=== PATIENT | male | born 1955 | race Caucasian/White ===

== ENCOUNTER 2020-08-31 10:07 | Outpatient (REF) | payer OTHER, SELFPAY ==
[2020-08-31 11:16] LABS: Hematocrit 45.2 % (42-52); Hemoglobin 15.2 g/dl (14.0-18.0); Mean Corpuscular HGB Conc 33.6 g/dl (31.0-36.0); Mean Corpuscular Hemoglobin 31.2 pg (27.0-33.0); Mean Corpuscular Volume 92.8 fL (80-98); Platelet Count 208 X10*3/uL (160-400); Red Blood Count 4.87 X10*6/uL (4.60-5.80); Red Cell Distribution Width 11.8 % (11.0-16.0); White Blood Count 5.3 X10*3/uL (4.8-10.8)
[2020-08-31 11:17] LABS: Glucose Urine UA NEG (NEG); Leukocyte Esterase Urine NEG (NEG); Nitrite Urine NEG (NEG); PH 5.5 (5.0-8.0); Specific Gravity - Urine >= 1.030 (1.005-1.025); Urine Blood TRACE (NEG); Urine Ketones NEG (NEG); Urine Protein NEG (NEG-TRACE)
[2020-08-31 11:27] LABS: Appearance Urine CLEAR; Color Urine YELLOW
[2020-08-31 11:56] LABS: Alanine Aminotransferase 22 U/L (0-40); Albumin Level 4.3 g/dL (3.5-5.0); Alkaline Phosphatase 54 U/L (39-117); Anion Gap 10 (12-20); Aspartate Amino Transferase 21 U/L (5-37); Bilirubin Total 1.7 mg/dL (0.0-1.0); Blood Urea Nitrogen 22 mg/dL (9-16); Calcium 8.7 mg/dL (8.4-10.2); Carbon Dioxide 26 mmol/L (22-29); Chloride 107 mmol/L (96-108); Cholesterol 149 mg/dL; Estimated Glomerular Filt Rate > 60; Glucose Fasting 96 mg/dL (60-99); HDL Cholesterol 43 mg/dL; LDL Cholesterol Calculated 87 mg/dl; Potassium 4.1 mmol/L (3.3-5.1); Sodium 139 mmol/L (135-145); Triglycerides 97 mg/dL
[2020-08-31 12:02] LABS: RBC Urine 0-2 /HPF (0); Squamous Epithelial Cell Urine TRACE /LPF; WBC Urine 0 /HPF (0-4)
== END 2020-08-31 10:08 | disposition home or self-care (01) ==
LOC: HO.HMGCLDS 10:07
PROVIDERS: PCP Internal Medicine; Visit Provider Internal Medicine
DX: Z00.00 Encounter for general adult medical examination without abnormal findings (principal); Z12.5 Encounter for screening for malignant neoplasm of prostate
CPT/HCPCS: 36415; 80053; 80061; 81001; 84153; 85027

== ENCOUNTER 2021-08-31 11:29 | Outpatient (REF) | payer OTHER, SELFPAY ==
[2021-08-31 13:49] LABS: Hematocrit 44.1 % (42.0-52.0); Hemoglobin 15.3 g/dl (14.0-18.0); Mean Corpuscular HGB Conc 34.7 g/dl (31.0-36.0); Mean Corpuscular Hemoglobin 31.6 pg (27.0-33.0); Mean Corpuscular Volume 91.1 fL (80.0-98.0); Mean Platelet Volume 8.9 fL (9.4-12.4); Platelet Count 230 X10*3/uL (160-400); Red Blood Count 4.84 X10*6/uL (4.60-5.80); Red Cell Distribution Width 11.6 % (11.0-16.0); White Blood Count 6.1 X10*3/uL (4.8-10.8)
[2021-08-31 13:57] LABS: Appearance Urine CLEAR; Color Urine YELLOW; Glucose Urine UA NEG (NEG); Leukocyte Esterase Urine NEG (NEG); Nitrite Urine NEG (NEG); Specific Gravity - Urine 1.025 (1.005-1.025); Urine Blood TRACE (NEG); Urine Ketones NEG (NEG); Urine Protein NEG (NEG-TRACE)
[2021-08-31 14:08] LABS: Alanine Aminotransferase 27 U/L (0-40); Albumin Level 4.4 g/dL (3.5-5.0); Alkaline Phosphatase 58 U/L (39-117); Anion Gap 9 (12-20); Aspartate Amino Transferase 20 U/L (5-37); Bilirubin Total 1.1 mg/dL (0.0-1.0); Blood Urea Nitrogen 21 mg/dL (9-16); Calcium 9.6 mg/dL (8.4-10.2); Carbon Dioxide 28 mmol/L (22-29); Chloride 108 mmol/L (96-108); Cholesterol 167 mg/dL; Estimated Glomerular Filt Rate > 60; Glucose Fasting 101 mg/dL (60-99); HDL Cholesterol 46 mg/dL; LDL Cholesterol Calculated 103 mg/dl; Potassium 4.3 mmol/L (3.3-5.1); Sodium 141 mmol/L (135-145); Total Protein 7.2 g/dL (6.5-8.0); Triglycerides 90 mg/dL
[2021-08-31 14:12] LABS: RBC Urine 0-2 /HPF (0); Squamous Epithelial Cell Urine TRACE /LPF; WBC Urine 0 /HPF (0-4)
[2021-08-31 14:29] LABS: Prostate Specific Antigen Scr 2.19 ng/mL (<0.05-4.0)
== END 2021-08-31 11:30 | disposition home or self-care (01) ==
LOC: HO.HMGCLDS 11:29
PROVIDERS: Visit Provider Internal Medicine
DX: Z00.00 Encounter for general adult medical examination without abnormal findings (principal); Z12.5 Encounter for screening for malignant neoplasm of prostate; I10 Essential (primary) hypertension
CPT/HCPCS: 36415; 80053; 80061; 81001; 84153; 85027

== ENCOUNTER 2021-10-08 15:18 | Outpatient (REF) | payer OTHER, SELFPAY ==
[2021-10-08 17:40] LABS: TSH reflex Free T4 1.27 uIU/mL (0.32-4.0)
== END 2021-10-08 15:19 | disposition home or self-care (01) ==
LOC: HO.HMGCLDS 15:18
PROVIDERS: Visit Provider Internal Medicine
DX: R00.2 Palpitations (principal); I10 Essential (primary) hypertension
CPT/HCPCS: 36415; 84443

== ENCOUNTER 2021-11-29 15:59 | Outpatient (REF) | payer OTHER, SELFPAY ==
--- NOTE | ~2021-11-29 | XR_ITS ---
EXAMINATION: XR LUMBOSACRAL SPINE WITH OBLIQUES CLINICAL INFORMATION: Lower back spasms COMPARISON: CT scan abdomen pelvis 10/05/2018 TECHNIQUE: 3 views of lumbar spine. FINDINGS: Lumbar vertebrae have normal height and alignment. No fracture bone destruction. There is advanced multilevel degenerative spondylosis. Multilevel disc height narrowing and endplate spur. Significant disc height narrowing, vacuum disc phenomena, L4-L5. There are large vertebral endplate spurs at L4-L5. There is complete loss of height of the L5 and S1 disc level. Multilevel facet joint arthrosis at mid lower lumbar spine. Compared to prior study of 10/05/2018 degenerative changes have mildly progressed. XR/XR lumbar spine 4V min IMPRESSION: 1. No acute abnormality. 2. Marked degenerative spondylosis of lumbar spine.
== END 2021-11-29 16:00 | disposition home or self-care (01) ==
LOC: HO.HMGCX 15:59
PROVIDERS: PCP Internal Medicine; Visit Provider Chiropractor
DX: S33.5XXA Sprain of ligaments of lumbar spine, initial encounter (principal)
CPT/HCPCS: 72110

== ENCOUNTER 2022-04-29 13:53 | Outpatient (REF) | payer OTHER, SELFPAY ==
--- NOTE | ~2022-04-29 | XR_ITS ---
EXAMINATION: XR CHEST CLINICAL INFORMATION: Cough COMPARISON: None TECHNIQUE: Frontal view of the chest was obtained. FINDINGS: No significant abnormality is noted involving the heart, lungs, mediastinum, or soft tissues. There are degenerative changes of the lower lumbar spine. XR/XR chest 1V IMPRESSION: Unremarkable examination.
[2022-04-29 17:41] LABS: Influenza A PCR NEGATIVE (Negative); Influenza B PCR NEGATIVE (Negative); Resp Syncy Virus RNA Qual PCR NEGATIVE (Negative); SARS COV2 PCR INHOUSE POSITIVE (Negative)
== END 2022-04-29 13:54 | disposition home or self-care (01) ==
LOC: HO.HMGCLDS 13:53
PROVIDERS: PCP Internal Medicine; Visit Provider Physician Assistant
DX: R05.9 Cough, unspecified (principal); J06.9 Acute upper respiratory infection, unspecified
CPT/HCPCS: 0241U; 71045

== ENCOUNTER 2022-05-08 09:32 | Outpatient (REF) | payer OTHER, SELFPAY ==
[2022-05-08 11:30] LABS: Hematocrit 41.6 % (42.0-52.0); Hemoglobin 14.3 g/dl (14.0-18.0); Mean Corpuscular HGB Conc 34.4 g/dl (31.0-36.0); Mean Corpuscular Hemoglobin 30.9 pg (27.0-33.0); Mean Corpuscular Volume 89.8 fL (80.0-98.0); Mean Platelet Volume 8.7 fL (9.4-12.4); Platelet Count 251 X10*3/uL (160-400); Red Blood Count 4.63 X10*6/uL (4.60-5.80); Red Cell Distribution Width 11.9 % (11.0-16.0); White Blood Count 6.1 X10*3/uL (4.8-10.8)
[2022-05-08 11:40] LABS: Alanine Aminotransferase 28 U/L (0-40); Albumin Level 4.2 g/dL (3.5-5.0); Alkaline Phosphatase 57 U/L (39-117); Anion Gap 15 (12-20); Aspartate Amino Transferase 21 U/L (5-37); Bilirubin Total 1.3 mg/dL (0.0-1.0); Blood Urea Nitrogen 20 mg/dL (9-16); Carbon Dioxide 25 mmol/L (22-29); Chloride 105 mmol/L (96-108); Cholesterol 162 mg/dL; Estimated Glomerular Filt Rate > 60; Glucose Fasting 108 mg/dL (60-99); HDL Cholesterol 46 mg/dL; LDL Cholesterol Calculated 97 mg/dl; Potassium 4.1 mmol/L (3.3-5.1); Sodium 141 mmol/L (135-145); Total Protein 6.8 g/dL (6.5-8.0); Triglycerides 97 mg/dL
== END 2022-05-08 09:33 | disposition home or self-care (01) ==
LOC: HO.HMGCLDS 09:32
PROVIDERS: PCP Internal Medicine; Visit Provider Internal Medicine
DX: Z00.00 Encounter for general adult medical examination without abnormal findings (principal); I10 Essential (primary) hypertension
CPT/HCPCS: 36415; 80053; 80061; 85027

== ENCOUNTER 2022-12-24 09:05 | Outpatient (REF) | payer MEDICARE, SELFPAY ==
[2022-12-24 11:16] LABS: Appearance Urine Clear; Color Urine Yellow; Glucose Urine UA Negative (Negative); Leukocyte Esterase Urine Negative (Negative); MANUAL DIFF FLAG NO; Nitrite Urine Negative (Negative); PH 5.5 (5.0-9.0); Specific Gravity - Urine 1.025 (1.005-1.025); Urine Blood Negative (Negative); Urine Ketones Negative (Negative); Urine Protein Negative (Neg-Trace)
[2022-12-24 11:20] LABS: Bacteria Urine None Seen (None Seen); Hyaline Casts Urine 0-2 /LPF (0-2); RBC Urine 0-2 /HPF (0-2); Squamous Epithelial Cell Urine 0-2 /HPF (0-2); WBC Urine 0-5 /HPF (0-5)
[2022-12-24 11:32] LABS: Basophils Percent Auto 0.4 % (0-2); Eosinophils Percent Auto 0.5 % (0-4); Hematocrit 43.2 % (42.0-52.0); Hemoglobin 14.4 g/dl (14.0-18.0); Imm Gran Abs Auto 0.01 X10*3/uL (0.00-0.03); Imm Gran Pct Auto 0.2 % (0.0-0.4); Lymphocytes Absolute Auto 2.3 X10*3/uL (1.2-4.9); Lymphocytes Percent Auto 40.3 % (20-40); Mean Corpuscular HGB Conc 33.3 g/dl (31.0-36.0); Mean Corpuscular Hemoglobin 31.2 pg (27.0-33.0); Mean Corpuscular Volume 93.5 fL (80.0-98.0); Mean Platelet Volume 9.4 fL (9.4-12.4); Monocytes Absolute Auto 0.4 X10*3/uL (0.1-1.2); Monocytes Percent Auto 7.5 % (2-11); Neutrophils Absolute Auto 2.9 x10*3/uL (2.0-8.3); Neutrophils Percent Auto 51.1 % (45-73); Platelet Count 219 X10*3/uL (160-400); Red Blood Count 4.62 X10*6/uL (4.60-5.80); White Blood Count 5.6 X10*3/uL (4.8-10.8)
[2022-12-24 12:13] LABS: Alanine Aminotransferase 34 U/L (0-40); Albumin Level 4.3 g/dL (3.5-5.0); Alkaline Phosphatase 53 U/L (39-117); Anion Gap 10 (12-20); Aspartate Amino Transferase 26 U/L (5-37); Bilirubin Total 1.4 mg/dL (0.0-1.0); Blood Urea Nitrogen 21 mg/dL (9-16); Calcium 9.3 mg/dL (8.4-10.2); Carbon Dioxide 28 mmol/L (22-29); Chloride 109 mmol/L (96-108); Cholesterol 149 mg/dL; Estimated Glomerular Filt Rate > 60; Glucose Fasting 104 mg/dL (60-99); HDL Cholesterol 44 mg/dL; LDL Cholesterol Calculated 93 mg/dl; PSA,Total (Free>4and<10) 1.25 ng/mL (0.00-4.00); Potassium 4.3 mmol/L (3.3-5.1); Sodium 143 mmol/L (135-145); Triglycerides 60 mg/dL
== END 2022-12-24 09:06 | disposition home or self-care (01) ==
LOC: HO.HMGCLDS 09:05
PROVIDERS: PCP Internal Medicine; Visit Provider Internal Medicine
DX: Z00.00 Encounter for general adult medical examination without abnormal findings (principal); Z12.5 Encounter for screening for malignant neoplasm of prostate; I10 Essential (primary) hypertension
CPT/HCPCS: 36415; 80053; 80061; 81001; 84153; 85025

== ENCOUNTER 2023-08-05 08:54 | Day surgery (SDC) | payer MEDICARE, SELFPAY ==
[2023-08-01 11:54] VITALS: BMI 29.0
--- NOTE | 2023-08-04 10:41 | HO.ANESPROP2 ---
Documented by User: Gissell Hunt NP 08/04/23 10:41 HPI - Anesthesia Eval Consult details Narrative: 67yo M for Upper Endoscopy PMFSH Active Problems Active Problems: All Active Problems (Updated 07/31/23 @ 20:40 by Hilary Yeager RN) Hyperglycemia (Acute) GERD (gastroesophageal reflux disease) (Acute) Abdominal pain (Acute) Renal cancer (Acute) HTN (hypertension) (Acute) Annual physical exam (Acute) Past Medical History Medical History Diverticulosis Anxiety GERD (gastroesophageal reflux disease) Abdominal pain Renal cancer HTN (hypertension) Kidney stone Annual physical exam Family History Family History Father No problems noted. Mother Diabetes mellitus Surgical History Surgical History History of left knee replacement H/O partial nephrectomy History of esophagogastroduodenoscopy (EGD) H/O colonoscopy History of inguinal hernia repair, bilateral History of tonsillectomy History of knee replacement procedure of right knee History of arthroscopy of right knee History of arthroscopy of left knee Social History Social History Housing: House Patient Tobacco Use Status: Never used Tobacco e-Cigarette/Vaping Use: Never Used Use of substances other than those prescribed or required for medical reasons: No Are you DNR?: No Advance Directives: No Advance Directives Information Provided: Yes Current occupational status: employed Cognitive needs: No Hearing needs: No Vision needs: Yes Meds Allergies Allergy/AdvReac Type Severity Reaction Status Date / Time olmesartan Allergy Unknown Palpitation Verified 08/05/23 09:09 s oxycodone Allergy Unknown can't Verified 08/05/23 09:09 think streight lisinopril AdvReac Unknown dry cough Verified 08/05/23 09:09 Home Medications Medication Instructions Recorded Confirmed Last Taken Type famotidine 40 mg tablet 40 mg PO BEDTIME 10/08/21 07/31/23 Unknown History uvxkgflqvuqu-rjoyabdn-utwbjx tablet 1 tab PO DAILY 07/31/23 07/31/23 Unknown History omega-3 fatty acids 1,000 mg PO DAILY 07/31/23 07/31/23 Unknown History pantoprazole 40 mg tablet,delayed 40 mg PO DAILY 07/31/23 07/31/23 Unknown History release Exam Height,Weight and Vital Signs: Height 6 ft 1 in Weight 99.798 kg Assessment and Plan Assessment Anesthesia Assessment: Chart Reviewed Documented by User: Js Reich MD 08/05/23 09:36 [facility] Past Medical History Medical History Diverticulosis Anxiety GERD (gastroesophageal reflux disease) Abdominal pain Renal cancer HTN (hypertension) Kidney stone Annual physical exam Family History Family History Father No problems noted. Mother Diabetes mellitus Family history of problems with anesthesia: No Surgical History Surgical History History of left knee replacement H/O partial nephrectomy History of esophagogastroduodenoscopy (EGD) H/O colonoscopy History of inguinal hernia repair, bilateral History of tonsillectomy History of knee replacement procedure of right knee History of arthroscopy of right knee History of arthroscopy of left knee History of Problems with Anesthesia: No Social History Social History Housing: House Patient Tobacco Use Status: Never used Tobacco e-Cigarette/Vaping Use: Never Used Use of substances other than those prescribed or required for medical reasons: No Are you DNR?: No Advance Directives: No Advance Directives Information Provided: Yes Current occupational status: employed Cognitive needs: No Hearing needs: No Vision needs: Yes Meds Allergies Allergy/AdvReac Type Severity Reaction Status Date / Time olmesartan Allergy Unknown Palpitation Verified 08/05/23 09:09 s oxycodone Allergy Unknown can't Verified 08/05/23 09:09 think streight lisinopril AdvReac Unknown dry cough Verified 08/05/23 09:09 Home Medications Medication Instructions Recorded Confirmed Last Taken Type famotidine 40 mg tablet 40 mg PO BEDTIME 10/08/21 07/31/23 Unknown History kyxhbpndcwzw-qgzcjmio-ohrekf tablet 1 tab PO DAILY 07/31/23 07/31/23 Unknown History omega-3 fatty acids 1,000 mg PO DAILY 07/31/23 07/31/23 Unknown History pantoprazole 40 mg tablet,delayed 40 mg PO DAILY 07/31/23 07/31/23 Unknown History release Exam Airway Mallampati Class: II TM Dist: >3cm Neck ROM: Full Loose/Missing/Broken Teeth: No Heart: rrr+s1s2 Lungs: cta b/l Assessment and Plan Assessment Anesthesia Assessment: Anesthesia Plan Discussed Final Anesthetic Review Family History of Problems with Anesthesia: No History of Problems with Anesthesia: No NPO: Yes ASA Class: II Final Preanesthetic Review: No Changes in Pt Med Stat, Meds/Allgs Chart Reviewed, Consent Obtained/Reviewed and Anes Risks/Benef Reviewed Patient Risk: Intermediate Procedure Risk: Intermediate Assessment/Block/Sedation in SS: Assess/Block/Sedation-SS Anesthetic Plan Anesthetic Plan: MAC: and Agree w/ Assess. and Plan Disposition: Standard PACU
[2023-08-05 09:10] VITALS: BMI 31.0
[2023-08-05 09:35] VITALS: BP 145/79; PULSE 82; RESP 16; TEMP 36.6; O2SAT 95
[2023-08-05] MEDS: Lactated Ringers 1,000 ML 100 ML IVCONT (09:38)
--- NOTE | 2023-08-05 09:44 | MHC.SHP ---
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 Details of Present Illness: see H&P no changes Relevant Family History (Specify if Yes): No Relevant Social History: None Present Medications: see Short Stay Collaborative assessment Medical History: No relevant PMH History of Previous Operations: No relevant previous surgery Allergies: Allergies Allergy/AdvReac Type Severity Reaction Status Date / Time olmesartan Allergy Unknown Palpitation Verified 08/05/23 09:09 s oxycodone Allergy Unknown can't Verified 08/05/23 09:09 think streight lisinopril AdvReac Unknown dry cough Verified 08/05/23 09:09 Review of Systems Sugical H&P ROS: Negative: Constitution, Cardiovascular, Respiratory, Neurological, Psychiatric, Hem-Onc, Allergic/Immunologic, Gastrointestinal, Genitourinary, Musculoskeletal, Integumentary, Endocrine and Eyes/Ears/Nose/Throat Exam Surgical H&P Exam: Normal: HEENT, Normal: Heart, Normal: Lungs, Normal: Extremities, Normal: Abdomen, Normal: Skin and Normal: Neurological Plan Diagnosis/Plan: Unchanged I have reviewed the history and physical and performed a pertinent physical examination on my patient. No changes have occurred unless specified. Time Spent With Patient Time: Total time managing care of this patient today ____ minutes.
[2023-08-05 10:02] VITALS: BP 100/69; PULSE 86; RESP 16; TEMP 36.3; O2SAT 96
--- NOTE | 2023-08-05 10:15 | OP_ITS ---
DATE OF SERVICE: 08/05/2023 SURGEON: Zane Fitzpatrick MD INDICATIONS: Perez esophagus and throat pain. PREOPERATIVE DIAGNOSIS: POSTOPERATIVE DIAGNOSIS: PROCEDURE PERFORMED: Upper endoscopy with biopsy. ESTIMATED BLOOD LOSS: COMPLICATIONS: ANESTHESIA: Monitored anesthesia care. ASSISTANTS: SPECIMENS: DESCRIPTION OF PROCEDURE: A history and physical was performed. The risks and benefits of the procedure were explained to the patient. Informed consent was obtained. The patient was placed in the left lateral decubitus position. The Olympus video gastroscope was introduced into the esophagus, stomach, and duodenum. Examination was performed. The scope was removed. He tolerated the procedure well and was returned to the recovery area in stable condition. FINDINGS: Esophagus: The esophagus was normal. There was no esophagitis. The EG junction was regular. This was biopsied. Stomach: The stomach showed no evidence of masses or ulcers. There was slight nodularity in the antrum. Biopsies were obtained from the antrum. Duodenum: The bulb and 2nd portion were normal. IMPRESSION: Perez esophagus. RECOMMENDATION: Follow up the biopsy results. MD ASHIA Caldwell/KYAWL / [id number]
[2023-08-05 10:17] VITALS: BP 119/75; PULSE 71; RESP 16; TEMP 36.3; O2SAT 96
== END 2023-08-05 10:32 | disposition home or self-care (01) ==
PROVIDERS: PCP Internal Medicine; Visit Provider Internal Medicine Gastroenterology
PROC: 0DJ08ZZ Inspection of Upper Intestinal Tract, Via Natural or Artificial Opening Endoscopic (ICD-10-PCS; CPT 43235; principal; 2023-08-05 10:10)
DX: K22.70 Barrett's esophagus without dysplasia (principal); R07.0 Pain in throat; K29.50 Unspecified chronic gastritis without bleeding; K21.9 Gastro-esophageal reflux disease without esophagitis; I10 Essential (primary) hypertension; Z87.442 Personal history of urinary calculi; Z85.528 Personal history of other malignant neoplasm of kidney; Z90.5 Acquired absence of kidney; Z79.899 Other long term (current) drug therapy; Z88.5 Allergy status to narcotic agent
CPT/HCPCS: 43239; 88305; 88342; J2704

== ENCOUNTER 2023-12-26 10:57 | Outpatient (REF) | payer MEDICARE, SELFPAY ==
[2023-12-26 13:23] LABS: MANUAL DIFF FLAG NO
[2023-12-26 13:52] LABS: Basophils Percent Auto 0.4 % (0-2); Eosinophils Absolute Auto 0.1 X10*3/uL (0.0-0.4); Eosinophils Percent Auto 0.9 % (0-4); Hematocrit 44.8 % (42.0-52.0); Hemoglobin 15.4 g/dl (14.0-18.0); Imm Gran Abs Auto 0.02 X10*3/uL (0.00-0.03); Imm Gran Pct Auto 0.4 % (0.0-0.4); Mean Corpuscular HGB Conc 34.4 g/dl (31.0-36.0); Mean Corpuscular Hemoglobin 31.4 pg (27.0-33.0); Mean Corpuscular Volume 91.4 fL (80.0-98.0); Mean Platelet Volume 9.1 fL (9.4-12.4); Monocytes Absolute Auto 0.4 X10*3/uL (0.1-1.2); Monocytes Percent Auto 6.8 % (2-11); Neutrophils Percent Auto 54.5 % (45-73); Platelet Count 216 X10*3/uL (160-400); Red Cell Distribution Width 12.1 % (11.0-16.0); White Blood Count 5.5 X10*3/uL (4.8-10.8)
[2023-12-26 14:00] LABS: Estimated Average Glucose 103 mg/dL; Hemoglobin A1c % 5.2 % (<6.0)
[2023-12-26 14:05] LABS: Alanine Aminotransferase 20 U/L (0-40); Albumin Level 4.3 g/dL (3.5-5.0); Alkaline Phosphatase 56 U/L (39-117); Anion Gap 13 (12-20); Aspartate Amino Transferase 21 U/L (5-37); Bilirubin Total 1.5 mg/dL (0.0-1.0); Blood Urea Nitrogen 18 mg/dL (9-16); Calcium 9.4 mg/dL (8.4-10.2); Carbon Dioxide 26 mmol/L (22-29); Chloride 107 mmol/L (96-108); Cholesterol 163 mg/dL (<200); Estimated Glomerular Filt Rate > 60; Glucose Random 99 mg/dL (60-115); HDL Cholesterol 44 mg/dL (>40); LDL Cholesterol Calculated 103 mg/dL (<100); Potassium 4.4 mmol/L (3.3-5.1); Sodium 142 mmol/L (135-145); Total Protein 7.3 g/dL (6.5-8.0); Triglycerides 81 mg/dL (<150)
[2023-12-26 14:21] LABS: PSA,Total (Free>4and<10) 2.02 ng/mL (0.00-4.00)
== END 2023-12-26 10:58 | disposition home or self-care (01) ==
LOC: HO.HMGCLDS 10:57
PROVIDERS: PCP Internal Medicine; Visit Provider Internal Medicine
DX: Z00.00 Encounter for general adult medical examination without abnormal findings (principal); I10 Essential (primary) hypertension; K21.9 Gastro-esophageal reflux disease without esophagitis; Z12.5 Encounter for screening for malignant neoplasm of prostate; R73.9 Hyperglycemia, unspecified
CPT/HCPCS: 36415; 80053; 80061; 83036; 84153; 85025

== ENCOUNTER 2023-12-29 08:37 | Outpatient (AMB) | payer MEDICARE, SELFPAY ==
[2023-12-29 08:39] VITALS: BP 126/78; PULSE 84; O2SAT 98; BMI 30.5
--- NOTE | 2023-12-29 08:39 | A.OFFPC_ITS ---
Vital Signs 12/29/23 08:39 Height 5 ft 11 in Weight 219 lb BMI 30.5 BP 126/78 Blood Pressure Location Lt brachial Position Sitting Pulse 84 Pulse Source Pulse Oximeter Pulse Oximetry (%) 98 Oxygen Delivery Method Room Air Intake Visit Reasons: Annual PE Intake Note: Pt is here today for PE. Allergies olmesartan Allergy (Unknown, Verified 12/29/23 08:42) Palpitations oxycodone Allergy (Unknown, Verified 12/29/23 08:42) can't think streight lisinopril Adverse Reaction (Unknown, Verified 12/29/23 08:42) dry cough Medication List - Last Reconciled 12/29/23 by Jo Osborne MD amlodipine 5 mg PO DAILY ngdeqrbsrhoa-yssplmut-thictx 1 tab PO DAILY omega-3 fatty acids 1,000 mg PO DAILY pantoprazole 40 mg PO DAILY Tobacco use date assessed: 12/29/23 Fall risk assessment: No Falls in past year Last assessed Fall Risk: 12/29/23 Dental Screening Dental Screen Date: 12/29/23 Did you have a dental visit in the last 12 months?: Yes Did you have a dental problem in the last 6 months where you did not have access to dental care?: No Was dental information given to patient?: Patient has dentist HPI Annual PE HPI Details Pt presents for PE. [facility] Medical History (Updated 12/29/23 @ 09:15 by Jo Osborne MD) Diverticulosis Anxiety GERD (gastroesophageal reflux disease) Abdominal pain Renal cancer HTN (hypertension) Kidney stone Annual physical exam Surgical History History of left knee replacement H/O partial nephrectomy History of esophagogastroduodenoscopy (EGD) H/O colonoscopy History of inguinal hernia repair, bilateral History of tonsillectomy History of knee replacement procedure of right knee History of arthroscopy of right knee History of arthroscopy of left knee Family History Father No problems noted. Mother Diabetes mellitus Social History Housing: House Patient Tobacco Use Status: Never used Tobacco e-Cigarette/Vaping Use: Never Used service: Yes Current occupational status: employed Cognitive needs: No Hearing needs: No Vision needs: Yes Questionnaire PHQ-9 Over the last 2 weeks, how often have you been bothered by any of the following problems? 1. Little interest or pleasure in doing things: not at all 2. Feeling down, depressed, or hopeless: not at all 3. Trouble falling or staying asleep, or sleeping too much: not at all 4. Feeling tired or having little energy: several days 5. Poor appetite or overeating: not at all 6. Feeling bad about yourself - or that you are a failure or have let yourself or your family down: not at all 7. Trouble concentrating on things, such as reading the newspaper or watching television: not at all 8. Moving or speaking so slowly that other people could have noticed. Or the opposite - being so fidgety or restless that you have been moving around a lot more than usual: not at all 9. Thoughts that you would be better off or of hurting yourself in some way: not at all Total score: 1 Depression Screening Interpretation: Negative Depression Screening Done: Yes Source: Developed by Drs. Ki Franco, Holly Leung, Vincent German and colleagues, with an educational jean pierre from [employer]. Thrive Questionnaire Date Thrive assessed: 12/29/23 I am a: Patient What is your living situation today?: I have a steady place to live Within the past 12 months, did the food you bought not last and you didn't have the money to get more?: Never true Within the past 12 months, did you worry whether your food would run out before you got money to buy more?: Never true Do you have trouble paying for medicines?: No Do you have trouble getting transportation to medical appointments?: No Do you have trouble paying your heating and electricity bill?: No Do you have trouble taking care of your child, family member or friend?: No Do you have trouble with day-to-day activities such as bathing, preparing meals, shopping, managing finances, etc.?: No Are you currently unemployed and looking for a job?: No Are you interested in more education?: No Please select the resources that you would like help with: None THRIVE Score: 0 AUDIT C Alcohol Use Questionnaire (AUDIT-C) 1. How often do you have a drink containing alcohol?: 4 or more times a week 2. How many drinks containing alcohol do you have on a typical day when you are drinking?: 1 or 2 3. How often do you have six or more drinks on one occasion?: Never Total Score: 4 DARIN-7 AMB Questionnaire DARIN-7 Date DARIN - 7 assessed: 12/29/23 Feeling nervous, anxious, or on edge: 0 = Not at all Not being able to stop or control worryin = Not at all Worrying too much about different things: 0 = Not at all Trouble relaxin = Not at all Being so restless that it is hard to sit still: 0 = Not at all Becoming easily annoyed or irritable: 0 = Not at all Feeling afraid as if something awful might happen: 0 = Not at all Total DARIN-7 score (0-4 normal; 5-9 mild; 10-14 moderate; 15-21 severe): 0 Source: Developed by Drs. Ki Franco, Holly Leung, Vincent German and colleagues, with an educational jean pierre from [employer]. Review of Systems Const All systems reviewed & are unremarkable except as noted in HPI and below Eyes Reports no additional complaints ENT Reports no additional complaints Card Reports no additional complaints Resp Reports no additional complaints GI Reports no additional complaints Reports no additional complaints Musc Reports no additional complaints Physical exam (Primary Care) Vital Signs: Last Vital Signs Pulse 84 12/29/23 08:39 BP 126/78 12/29/23 08:39 Pulse Ox 98 12/29/23 08:39 Oxygen Delivery Method Room Air 12/29/23 08:39 BMI result Body Mass Index 30.5 Tobacco/Smoking Status: Tobacco use Status Tobacco use date assessed 12/29/23 12/29/23 08:46 Patient Tobacco Use Status Never used Tobacco 12/29/23 08:46 e-Cigarette/Vaping Use Never Used 12/29/23 08:46 PHQ-9: PHQ-9 Score PHQ-9: Total score 1 12/29/23 08:46 Depression Screening Interpretation: Negative Thrive Assessment: Date of Thrive Assessment Date Thrive assessed 12/29/23 12/29/23 08:46 Const General: no acute distress HENMT Head: Yes normal to inspection Ears: hearing grossly normal bilaterally Face and sinus: Yes normal facial exam Mouth: Normal oral and palatal mucosa present Eyes General: appearance normal, both eyes and all related structures Neck Neck: Yes no lymphadenopathy and Yes supple Resp Effort & Inspection: normal respiratory effort Auscultation: clear to auscultation bilaterally Cardio Rhythm: regular rhythm Heart sounds: S1 normal heart sound present and S2 normal heart sound present GI Inspection: Yes normal to inspection Palpation (GI): Soft to palpation Percussion: Yes normal to percussion Auscultation: normal bowel sounds Assessment and Plan Assessment & Plan (1) Renal cancer: Comment: s/p R nephrectomy at [facility] 01/2019 Code(s): C64.9 - Malignant neoplasm of unspecified kidney, except renal pelvis Plan: Follow-up with urology at [facility] (2) GERD (gastroesophageal reflux disease): Comment: EGD at [facility] Perez's esophagus, no dysplasia, chronic gastritis, f/u Dr. Fitzpatrick, repeat EGD 08/20 active Perez's esophagus but no dysplasia Code(s): K21.9 - Gastro-esophageal reflux disease without esophagitis Plan: Continue PPI and anti GERD diet, follow-up with GI (3) HTN (hypertension): Code(s): I10 - Essential (primary) hypertension Plan: Continue amlodipine (4) Annual physical exam: Code(s): Z00.00 - Encounter for general adult medical examination without abnormal findings Plan: Well-balanced diet regular exercise discussed with the patient. He would negative colonoscopy in 2019 Orders: Orders Comprehensive [place]. Panel Fast 1 Year I10 - Essential (primary) hypertension, K21.9 - Gastro-esophageal reflux disease without esophagitis, R73.9 - Hyperglycemia, unspecified, Z00.00 - Encounter for general adult medical examination without abnormal findings Complete Blood Count Auto Diff 1 Year I10 - Essential (primary) hypertension, K21.9 - Gastro-esophageal reflux disease without esophagitis, R73.9 - Hyperglycemia, unspecified, Z00.00 - Encounter for general adult medical examination without abnormal findings Lipid Panel 1 Year I10 - Essential (primary) hypertension, K21.9 - Gastro- esophageal reflux disease without esophagitis, R73.9 - Hyperglycemia, unspecified, Z00.00 - Encounter for general adult medical examination without abnormal findings UA w Microscopic 1 Year I10 - Essential (primary) hypertension, K21.9 - Gastro- esophageal reflux disease without esophagitis, R73.9 - Hyperglycemia, unspecified, Z00.00 - Encounter for general adult medical examination without abnormal findings PSA,Total (Free>4and<10) 1 Year I10 - Essential (primary) hypertension, K21.9 - Gastro-esophageal reflux disease without esophagitis, R73.9 - Hyperglycemia, unspecified, Z00.00 - Encounter for general adult medical examination without abnormal findings Vitamin D 25-OH Total 1 Year I10 - Essential (primary) hypertension, K21.9 - Gastro-esophageal reflux disease without esophagitis, R73.9 - Hyperglycemia, unspecified, Z00.00 - Encounter for general adult medical examination without abnormal findings Coding Level of Care Code Est Pt Prev Care >65y(29230) Diagnoses Renal cancer C64.9 GERD (gastroesophageal reflux disease) K21.9 HTN (hypertension) I10 Annual physical exam Z00.00
== END 2023-12-29 09:20 | disposition home or self-care (01) ==
PROVIDERS: PCP Internal Medicine; Visit Provider Internal Medicine
DX: Z00.00 Encounter for general adult medical examination without abnormal findings (principal); C64.9 Malignant neoplasm of unspecified kidney, except renal pelvis; K21.9 Gastro-esophageal reflux disease without esophagitis; I10 Essential (primary) hypertension
CPT/HCPCS: 99397

== ENCOUNTER 2024-04-20 08:44 | Outpatient (REF) | payer MEDICARE, SELFPAY ==
--- NOTE | ~2024-04-20 | CT_ITS ---
EXAMINATION: CT CHEST WITHOUT CONTRAST CT ABDOMEN AND PELVIS WITHOUT AND WITH CONTRAST CLINICAL INFORMATION: ABD PAIN CYST OF KIDNEY COMPARISON: CT abdomen 11/02/2018 as well as prior studies. CT abdomen and pelvis 10/05/2018. TECHNIQUE: Initial CT scan through the chest and abdomen was performed without without IV contrast. Next, multidetector volumetric imaging was performed from the top of the liver through the pubic symphysis following administration of 85 mL Omnipaque 350. Two phases of IV contrast scans were obtained, one during the arterial phase and 1 during the portal venous phase. Sagittal and coronal reformatted images were obtained on the technologist's workstation. This CT examination was performed using dose optimization techniques as appropriate, variously including the following: *Automated exposure control *Adjustment of mA and/or kV according to patient size (this includes techniques or standardized protocols for targeted exams where dose is matched to indication/reason for exam; i.e. extremities or head) *Use of iterative reconstruction technique DLP: 1075 mGy-cm FINDINGS: CHEST: Lung: There is minimal emphysematous change. Mild bronchial thickening without bronchiectasis. There is a triangular perifissural right lower lobe nodule measuring 5.5 mm abutting the fissure consistent with a fissural lymph node (5:295). A 3 mm left lower lobe subpleural nodule (5:389). The lungs are otherwise clear without concerning focal opacity or nodule. Mediastinum: The mediastinum is normal. The central vascular structures are unremarkable. No hilar or mediastinal lymphadenopathy. Coronary Artery Calcium: Mild to moderate. Pericardium/Pleura: No significant effusion. No pleural mass or thickening. Chest Wall/Axilla: Unremarkable ABDOMEN/PELVIS: Peritoneal Space: No significant free air or free fluid identified. Liver, Gallbladder, Biliary Tree: The liver is normal in size and shape but with decreased attenuation consistent with hepatic steatosis. No focal hepatic lesion or biliary ductal dilatation is present. The gallbladder is unremarkable with no evidence of radiopaque gallstones, gallbladder wall thickening, or obvious pericholecystic inflammatory changes. Pancreas: Unremarkable Spleen: Unremarkable Adrenal Glands: Unremarkable Kidneys and Ureters: The kidneys are normal in size, shape, and attenuation. There has been a right partial nephrectomy with a suture line at the lower pole. No hydronephrosis, hydroureter, or calculi seen. There are bilateral parapelvic benign Bosniak class I renal cysts noted, left significantly greater than the right. These require no additional imaging or follow-up. No solid renal masses are seen. Bladder: Unremarkable Gastrointestinal Tract: The small and large bowel are unremarkable aside from sigmoid diverticulosis without diverticulitis. The appendix is unremarkable. There is an ovoid rim calcified structure seen adjacent to the lateral border of the ascending colon, likely an old torsed epiploic appendage, new when compared to 10/05/2018. Abdominal Wall: Tiny periumbilical hernia contains only fat. Lymph Nodes: No retroperitoneal lymphadenopathy. Vascular: Minimal calcific atherosclerotic changes are present in the aorta and iliac vessels. There is no evidence of an abdominal aortic aneurysm. The IVC appears unremarkable. PELVIC VISCERA: There is dxeh-cu-cvblfhxf BPH. Seminal vesicles are symmetrically bulky. Some calcifications are present in the right hemiscrotum, likely in the epididymis. OSSEUS STRUCTURES: Mild degenerative changes are noted in the spine along with minimal scoliosis. No bony destructive lesions are seen. CT/CT abdomen pelvis wo/w IV con IMPRESSION: 1. A cause for the patient's abdominal pain has not been found. 2. Minimal emphysema with a 5.5 mm benign right lower lobe fissural lymph node. 3. Hepatic steatosis. 4. Bilateral benign Bosniak class I renal cysts which require no additional imaging or follow-up. 5. Sigmoid diverticulosis without diverticulitis. 6. Mild to moderate BPH. 7. Other incidental findings as described above. Fleischner guidelines were followed. Electronically signed by: Damián Escalona MD 04/20/2024 01:37 PM EDT
[2024-04-20] MEDS: iohexoL 350 MG/ML 100 ML INFUS..BTL 85 ML IV (09:53)
[2024-04-21 09:42] LABS: Creatinine POC 0.9 mg/dL (0.5-1.4); GFR POC > 60
== END 2024-04-20 08:45 | disposition home or self-care (01) ==
LOC: HO.CT 08:44
PROVIDERS: PCP Internal Medicine; Visit Provider Urology
DX: R10.9 Unspecified abdominal pain (principal); M54.89 Other dorsalgia; Z85.528 Personal history of other malignant neoplasm of kidney; N28.1 Cyst of kidney, acquired
CPT/HCPCS: 71250; 74178; 82565; Q9967

== ENCOUNTER 2024-05-15 23:47 | Emergency (ER) | payer MEDICARE, SELFPAY ==
--- NOTE | ~2024-05-15 | CT_ITS ---
EXAMINATION: CT ABDOMEN AND PELVIS WITHOUT CONTRAST CLINICAL INFORMATION: Left flank pain. COMPARISON: None available. TECHNIQUE: Multidetector volumetric imaging was performed from the superior aspect of the liver through the pubic symphysis. Sagittal and coronal reformatted images were obtained on the technologist's workstation. This CT examination was performed using dose optimization techniques as appropriate, variously including the following: *Automated exposure control *Adjustment of mA and/or kV according to patient size (this includes techniques or standardized protocols for targeted exams where dose is matched to indication/reason for exam; i.e. extremities or head) *Use of iterative reconstruction technique DLP: 658 mGy-cm FINDINGS: LUNG BASES: There is mild atelectatic change and/or scarring at the lung bases. LIVER, GALLBLADDER, AND BILIARY TREE: The liver is normal in size, shape, and attenuation. No focal hepatic lesion or biliary ductal dilatation is present. The gallbladder is unremarkable with no evidence of radiopaque gallstones, gallbladder wall thickening, or obvious pericholecystic inflammatory changes. PANCREAS: Unremarkable. SPLEEN: Unremarkable. ADRENAL GLANDS: Unremarkable. KIDNEYS AND URETERS: The kidneys are normal in size, shape, and attenuation. Left parapelvic cysts are again noted. There is mild left perinephric stranding. There is mild left hydronephrosis and hydroureter extending into the pelvis to the level of a 3.5 to 4 mm left ureterovesicular junction calculus. BLADDER: Unremarkable. GASTROINTESTINAL TRACT: There are diverticula of the descending and the sigmoid colon without diverticulitis. The appendix is visualized and is within normal limits ABDOMINAL WALL: There is a minimal umbilical hernia containing fat. LYMPH NODES: Normal. VASCULAR: There is mild atherosclerotic plaque of the abdominal aorta. PELVIC VISCERA: Unremarkable. OSSEOUS STRUCTURES: There is diffuse thoracolumbar disc degenerative change. CT/CT abdomen pelvis wo IV con IMPRESSION: 1. Mild left hydronephrosis and hydroureter extending into the pelvis to the level of a 3.5 to 4 mm left ureterovesicular junction calculus. 2. Diverticulosis without diverticulitis. Fleischner guidelines were followed. Electronically signed by: Abiel Power MD 05/16/2024 02:26 AM EDT
[2024-05-15 23:48] VITALS: BP 161/86; PULSE 74; RESP 20; TEMP 36.8; O2SAT 96; BMI 30.3
[2024-05-16] MEDS: ondansetron HCL 4 MG/2 ML VIAL IVPUSH (00:03)
[2024-05-16] MEDS: Morphine Sulfate 4 MG/ML CARTRIDGE IVPUSH ×2 (00:04→01:35)
[2024-05-16] MEDS: Ketorolac Tromethamine 30 MG/ML VIAL IVPUSH (00:04)
[2024-05-16 00:06] LABS: Basophils Percent Auto 0.3 % (0-2); Eosinophils Percent Auto 0.3 % (0-4); Hematocrit 43.5 % (42.0-52.0); Hemoglobin 15.6 g/dl (14.0-18.0); Imm Gran Abs Auto 0.03 X10*3/uL (0.00-0.03); Imm Gran Pct Auto 0.3 % (0.0-0.4); Lymphocytes Percent Auto 21.8 % (20-40); MANUAL DIFF FLAG NO; Mean Corpuscular HGB Conc 35.9 g/dl (31.0-36.0); Mean Corpuscular Hemoglobin 31.7 pg (27.0-33.0); Mean Corpuscular Volume 88.4 fL (80.0-98.0); Mean Platelet Volume 8.4 fL (9.4-12.4); Monocytes Absolute Auto 0.6 X10*3/uL (0.1-1.2); Monocytes Percent Auto 6.1 % (2-11); Neutrophils Absolute Auto 6.5 x10*3/uL (2.0-8.3); Neutrophils Percent Auto 71.2 % (45-73); Platelet Count 225 X10*3/uL (160-400); Red Blood Count 4.92 X10*6/uL (4.60-5.80); Red Cell Distribution Width 11.6 % (11.0-16.0); White Blood Count 9.2 X10*3/uL (4.8-10.8)
[2024-05-16] MEDS: 0.9 % Sodium Chloride 1,000 ML 999 ML IV (00:08)
--- OUTSIDE RECORDS SUMMARY | 2024-05-16 00:14 | XMS_ITS ---
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
--- OUTSIDE RECORDS SUMMARY | 2024-05-16 00:14 | XMS_ITS ---
Author Organization [facility] Address [address] [place] [phone] Care Team Providers Care Veneer Measurer Name Role Phone Jo Osborne MD Primary Care Provider Zane Trujillo Jr [phone] REASON FOR VISIT pathology Encounters Encounter Location Date Provider Diagnosis [facility] [address] [place] [phone] 08/11/2023 Zane Fitzpatrick Jr PLAN OF TREATMENT No Information
--- OUTSIDE RECORDS SUMMARY | 2024-05-16 00:14 | XMS_ITS | Continuity of Care Document ---
Author Organization [facility] ter Address [address] [place] [phone] Care Team Providers Care Electrical Sign Wirer Helper Name Role Phone Zack Perales MD Primary Care Physician Encounter 02/13/24 - 02/14/[address] [id number] Attending Physician: Not on Staff, Attending MD Referring Physician: Not on Staff, Referring MD Results Radiology Reports * Exam Date Time Procedure Performing Provider Status 02/13/24 11:20 AM MRI Brain W+W/O Contrast Auth (Verified) Notes: (MRI Brain W+W/O Contrast) Reason For Exam: Sensorineural Hearing Loss, Bilateral - Tinnitus, RightEar;Sensorineural Hearing Loss, Bilateral - Tinnitus, Right Ear RESULT: MRI Brain W+W/O Contrast [facility] VISIT NUMBER :[id number] Patient Name: All Tate Date of : 1955 Date of Exam: 02-13-2024 Referring Physician: Jessica Sandhu [facility] [place] [address] Exam: MR Brain (C-/C+) CPT 16564 Room Description: [address] HISTORY: Bilateral sensorineural hearing loss. Right-sided tinnitus. TECHNIQUE: Multiplanar multisequence MRI of the brain (IAC) was obtained before and after the administration of 20 cc of Dotarem. COMPARISON: No prior studies are available for comparison at [facility]. FINDINGS: The brainstem and cerebellum are normal in signal. The there is no mass or abnormal enhancement within either cerebellopontine angle cistern or internal auditory canal. Expected T2 bright cochlear signal is maintained, and there is no abnormal cochlear enhancement. The ventricles are normal in size. No mass effect or extra-axial fluid collection. The visualized extracranial soft tissues and orbital structures are unremarkable. IMPRESSION: No retrocochlear lesion. Electronically Signed By: Andrea Faustin MD Dictated By: Not on Staff , MINISTERIO REEDER Dictated Date/Time: 02/13/24 4:03 pm Reviewed By: Not on Staff , MINISTERIO REEDER Signed By: Not on Staff , MINISTERIO REEDER Signed Date/Time: 02/13/24 4:03 pm Transcribed By: TS Transcribed Date/Time: 02/13/24 4:03 pm Patient Care team information Care Team Personnel Name: Zack Perales MD Position: [facility] Outreach Member Role: PCP Address: Address: [address] [place] [phone]- Care Team Related Persons Name: AURELIA TATE Address: [address] [address]
--- NOTE | 2024-05-16 00:15 | ED.ABDPAIN ---
HPI - Abdominal Pain General Chief Complaint: Abdominal Pain Stated Complaint: possible kidney stone Time Seen by Provider: 05/15/24 23:51 Source: patient Mode of arrival: ambulatory Limitations: no limitations History of Present Illness ED Provider: abby MEEKS narrative: Patient's history of kidney stone last stone was about 10 years ago comes here for acute onset of left flank pain radiating to the left groin started at 19:00 with nausea and vomiting no fever no chills no urinary symptom no sindy hematuria no fever or chills Related Data Home Medications ?Medication ?Instructions ?Recorded ?Confirmed [id number] tablet 1 tab PO DAILY 07/31/23 12/29/23 omega-3 fatty acids 1,000 mg PO DAILY 07/31/23 12/29/23 Previous Rx's ?Medication ?Instructions ?Recorded amlodipine 5 mg tablet 5 mg PO DAILY #90 tabs 05/12/24 pantoprazole 40 mg tablet,delayed 40 mg PO DAILY #90 tabs 05/12/24 release ibuprofen 600 mg tablet 600 mg PO Q6H PRN fever or pain 05/16/24 #30 tabs morphine 15 mg immediate release 15 mg PO Q8H PRN pain #10 tabs 05/16/24 tablet ondansetron 4 mg disintegrating 4 mg PO Q6-8H PRN nausea and 05/16/24 tablet vomiting #7 tabs tamsulosin 0.4 mg capsule (Flomax) 0.4 mg PO BEDTIME #7 caps 05/16/24 Allergies Allergy/AdvReac Type Severity Reaction Status Date / Time olmesartan Allergy Unknown Palpitation Verified 05/15/24 23:50 s oxycodone Allergy Unknown can't Verified 05/15/24 23:50 think streight lisinopril AdvReac Unknown dry cough Verified 05/15/24 23:50 Review of Systems Review of Systems Yes all other systems are reviewed and are negative PMFSH Past Medical History Medical History Diverticulosis Anxiety GERD (gastroesophageal reflux disease) Abdominal pain Renal cancer HTN (hypertension) Kidney stone Annual physical exam Surgical History History of left knee replacement H/O partial nephrectomy History of esophagogastroduodenoscopy (EGD) H/O colonoscopy History of inguinal hernia repair, bilateral History of tonsillectomy History of knee replacement procedure of right knee History of arthroscopy of right knee History of arthroscopy of left knee Family History Family History Father No problems noted. Mother Diabetes mellitus Social History Social History Housing: House Patient Tobacco Use Status: Never used Tobacco Smoked in Last 30 Days: No e-Cigarette/Vaping Use: Never Used Use of substances other than those prescribed or required for medical reasons: No Advance Directives: Yes Advance Directives Information Provided: No Advance Directives on File: No Do you have a plan to hurt others: No Plan service: Yes Current occupational status: employed Cognitive needs: No Hearing needs: No Vision needs: Yes Physical Exam ED Vital Signs: Vital Signs - 24 hr 05/15/24 23:48 05/16/24 01:51 05/16/24 02:51 Temperature 98.2 F 98.1 F 98.1 F Pulse Rate 74 66 66 Respiratory Rate 20 16 16 Blood Pressure 161/86 H 143/78 H 143/78 H Pulse Oximetry 96 96 96 Oxygen Delivery Method Room Air Room Air Room Air BMI result Body Mass Index 30.3 Appearance: Alert. Oriented X3. In moderate distress nauseated Eyes: No pallor or icterus ENT: Pharynx normal. Oral Mucosa moist Neck: Normal inspection. Neck supple. CVS: Normal heart rate and rhythm. Pulses normal. Respiratory: No respiratory distress. Equal air entry bilateral, no wheezing/rales/rhonchi Abdomen: Soft and nontender. Bowel sounds are present, no mass palpable,L CVA tenderness Skin: Skin warm and dry. Normal skin color. Normal skin turgor. Neuro: Oriented X 3. Medical Decision Making Medical Decision Making MDM Narrative: Patient's left renal colic with about 4 mm left UV junction stone feeling much better after IV hydration pain management discharge patient home on Flomax and pain medication advised to follow up with urologist Lab Data MDM Lab Attestation statement: I reviewed the patient's lab results. 05/16/24 00:00 05/16/24 00:00 Labs: Lab Results 05/16/24 05/16/24 Range/Units 00:00 01:10 WBC 9.2 (4.8-10.8) X10*3/uL RBC 4.92 (4.60-5.80) X10*6/uL Hgb 15.6 (14.0-18.0) g/dl Hct 43.5 (42.0-52.0) % MCV 88.4 (80.0-98.0) fL MCH 31.7 (27.0-33.0) pg MCHC 35.9 (31.0-36.0) g/dl RDW 11.6 (11.0-16.0) % Plt Count 225 (160-400) X10*3/uL MPV 8.4 L (9.4-12.4) fL Immature Gran % (Auto) 0.3 (0.0-0.4) % Neut % (Auto) 71.2 (45-73) % Lymph % (Auto) 21.8 (20-40) % [place] % (Auto) 6.1 (2-11) % Eos % (Auto) 0.3 (0-4) % Baso % (Auto) 0.3 (0-2) % Lymph # (Auto) 2.0 (1.2-4.9) X10*3/uL [place] # (Auto) 0.6 (0.1-1.2) X10*3/uL Eos # (Auto) 0.0 (0.0-0.4) X10*3/uL Baso # (Auto) 0.0 (0.0-0.2) X10*3/uL Abs Immat Gran (auto) 0.03 (0.00-0.03) X10*3/uL Absolute Neuts (auto) 6.5 (2.0-8.3) x10*3/uL Absolute Nucleated RBC 0.000 (0.0-0.012) X10*3/uL Nucleated RBC % (auto) 0.0 (0.0-0.2) /100WBC Sodium 139 (135-145) mmol/L Potassium 4.3 (3.3-5.1) mmol/L Chloride 109 H (96-108) mmol/L Carbon Dioxide 22 (22-29) mmol/L Anion Gap 12 (12-20) BUN 22 H (9-16) mg/dL Creatinine 1.02 (0.5-1.4) mg/dL Estim Creat Clear Calc 85.1 Estimated GFR > 60 Random Glucose 156 H (60-115) mg/dL Calcium 8.6 D (8.4-10.2) mg/dL Total Bilirubin 0.9 (0.0-1.0) mg/dL AST 20 (5-37) U/L ALT 26 (0-40) U/L Alkaline Phosphatase 66 (39-117) U/L Total Protein 7.4 (6.5-8.0) g/dL Albumin 4.4 (3.5-5.0) g/dL Urine Color Yellow Urine Appearance Clear Urine pH 5.5 (5.0-9.0) Ur Specific [place] >= 1.030 H (1.005-1.025) Urine Protein 30 (1+) H (Neg-Trace) mg/dL Urine Glucose (UA) Negative (Negative) mg/dL Urine Ketones Trace (Negative) mg/dL Urine Blood Negative (Negative) Urine Nitrite Negative (Negative) Ur Leukocyte Esterase Negative (Negative) Urine RBC 0-2 (0-2) /HPF Urine WBC 0-5 (0-5) /HPF Ur Squamous Epith Cells 0-2 (0-2) /HPF Calcium Oxalate Crystal Present Urine Bacteria None Seen (None Seen) Hyaline Casts 0-2 (0-2) /LPF Independent Interpretation I performed an independent interpretation of an: CT Scan Radiology Impression Discussion of test interpretation with radiology: I have reviewed the radiologist's reading. Radiologist Impression: [place] [id number] CT Scan Report Signed Patient: All Lopez MR#: [id number] : 1955 Acct:[id number] Age/Sex: 68 / M ADM Date: 05/16/24 Loc: HO.ED Attending Dr: Ordering Physician: Salinas Valdez MD Date of Service: 05/16/24 Procedure(s): CT abdomen pelvis wo IV con Accession Number(s): [id number] cc: Jo Osborne MD; Salinas Valdez MD~ EXAMINATION: CT ABDOMEN AND PELVIS WITHOUT CONTRAST CLINICAL INFORMATION: Left flank pain. COMPARISON: None available. TECHNIQUE: Multidetector volumetric imaging was performed from the superior aspect of the liver through the pubic symphysis. Sagittal and coronal reformatted images were obtained on the technologist's workstation. This CT examination was performed using dose optimization techniques as appropriate, variously including the following: *Automated exposure control *Adjustment of mA and/or kV according to patient size (this includes techniques or standardized protocols for targeted exams where dose is matched to indication/reason for exam; i.e. extremities or head) *Use of iterative reconstruction technique DLP: 658 mGy-cm FINDINGS: LUNG BASES: There is mild atelectatic change and/or scarring at the lung bases. LIVER, GALLBLADDER, AND BILIARY TREE: The liver is normal in size, shape, and attenuation. No focal hepatic lesion or biliary ductal dilatation is present. The gallbladder is unremarkable with no evidence of radiopaque gallstones, gallbladder wall thickening, or obvious pericholecystic inflammatory changes. PANCREAS: Unremarkable. SPLEEN: Unremarkable. ADRENAL GLANDS: Unremarkable. KIDNEYS AND URETERS: The kidneys are normal in size, shape, and attenuation. Left parapelvic cysts are again noted. There is mild left perinephric stranding. There is mild left hydronephrosis and hydroureter extending into the pelvis to the level of a 3.5 to 4 mm left ureterovesicular junction calculus. BLADDER: Unremarkable. GASTROINTESTINAL TRACT: There are diverticula of the descending and the sigmoid colon without diverticulitis. The appendix is visualized and is within normal limits ABDOMINAL WALL: There is a minimal umbilical hernia containing fat. LYMPH NODES: Normal. VASCULAR: There is mild atherosclerotic plaque of the abdominal aorta. PELVIC VISCERA: Unremarkable. OSSEOUS STRUCTURES: There is diffuse thoracolumbar disc degenerative change. CT/CT abdomen pelvis wo IV con IMPRESSION: 1. Mild left hydronephrosis and hydroureter extending into the pelvis to the level of a 3.5 to 4 mm left ureterovesicular junction calculus. 2. Diverticulosis without diverticulitis. Fleischner guidelines were followed. Electronically signed by: Abiel Power MD 05/16/2024 02:26 AM EDT Medications Administered Discontinued Medications Generic Name Dose Route Start Last Admin Trade Name Freq PRN Reason Stop Dose Admin Sodium Chloride 1,000 mls @ 999 mls/hr 05/15/24 23:56 05/16/24 02:22 Ns IV 05/16/24 00:56 Infused .Q1H1M ONE Infusion Ketorolac Tromethamine 30 mg 05/15/24 23:56 05/16/24 00:04 Ketorolac Tromethamine 30 Mg/Ml Vial IVPUSH 05/15/24 23:57 30 mg ONCE ONE Administration Morphine Sulfate 4 mg 05/15/24 23:56 05/16/24 00:04 Morphine Sulfate 4 Mg/Ml Cartridge IVPUSH 05/15/24 23:57 4 mg ONCE ONE Administration Protocol Morphine Sulfate 4 mg 05/16/24 01:16 05/16/24 01:35 Morphine Sulfate 4 Mg/Ml Cartridge IVPUSH 05/16/24 01:17 4 mg ONCE ONE Administration Protocol Ondansetron HCl 4 mg 05/15/24 23:56 05/16/24 00:03 Ondansetron Hcl 4 Mg/2 Ml Vial IVPUSH 05/15/24 23:57 4 mg ONCE ONE Administration Tamsulosin HCl 0.4 mg 05/16/24 01:16 05/16/24 01:35 Tamsulosin Hcl 0.4 Mg Capsule PO 05/16/24 01:17 0.4 mg ONCE ONE Administration Discharge Plan Discharge Clinical Impression: Calculus of distal left ureter Patient Disposition: Home, Self-Care Instructions: Low Oxalate Diet (ED), Ureteral Stones (ED) Additional Instructions: Drink plenty of fluids Pain medication and Flomax as prescribed Your stone likely going to pass Follow up with urologist if pain continues Prescriptions: New ibuprofen 600 mg tablet 600 mg PO Q6H PRN (Reason: fever or pain) Qty: 30 0RF tamsulosin [Flomax] 0.4 mg capsule 0.4 mg PO BEDTIME Qty: 7 0RF morphine 15 mg tablet 15 mg PO Q8H PRN (Reason: pain) Qty: 10 0RF Rx Instructions: Partial Fill upon patient request. ondansetron 4 mg tablet,disintegrating 4 mg PO Q6-8H PRN (Reason: nausea and vomiting) Qty: 7 0RF No Action amlodipine 5 mg tablet 5 mg PO DAILY Qty: 90 3RF pantoprazole 40 mg tablet,delayed release (DR/EC) 40 mg PO DAILY Qty: 90 3RF Centrum Silver Tablet 1 tab PO DAILY [place] 3 Capsule 1,000 mg PO DAILY Referrals: Kory Max MD [Physician] - 3 days Interventions: ED Discharge Assessment Last Done: 05/16/24 02:51 Discharge Date/Time: 05/16/24 02:52 Print Language: Turkish
--- OUTSIDE RECORDS SUMMARY | 2024-05-16 00:15 | XMS_ITS | Patient Health Record ---
Author Organization [facility] Address [address] [place] [address] Care Team Providers Care Microwave Supervisor Name Role Phone Jo Osborne MD Primary Care Provider Zane Trujillo Jr ALLERGIES Allergen (clinical drug ingredient) Drug/Non Drug Allergy documented on EMR Reaction Allergy Type Onset Date Status oxycodone Oxycodone Unknown Drug Allergy Active oxycodone OxyCONTIN Unknown Drug Allergy Active RESULTS Component Value Reference Range Notes Pathology Reviewed date:08/11/2023 02:53:21 PM Interpretation: Performing Lab:[facility], [address] [place] [id number] Notes/Report: REASON FOR REFERRAL No Information MEDICATIONS Medication SIG (Take, Route, Frequency, Duration) Notes Start Date End Date Status Pantoprazole Sodium 40 MG 1 tablet Orall y Once a day for 30 day(s) 11/27/2022 Active [place] 3 1000 MG 1 capsule Orally Onc e a day for 30 day(s) 11/27/2022 Active Centrum Silver - as directed Orally 11/27/2022 Active Famotidine 40 MG TAKE 1 TABLET BY MENDEZ TH EVERY DAY AT BEDTIME Oral for 30 Active amLODIPine Besylate 5 MG TAKE 1 TABLET B Y MOUTH DAILY Oral for 90 Active IMMUNIZATIONS Vaccine Route Administration Date Status Comme nts Influenza Unknown 05/14/2022 Administered SOCIAL HISTORY Tobacco Use: Social History Observation Description Date Details (start date - stop date) Never Smoker NA - NA Sex Assigned At : Social History Observation Description Sex Assigned At Unknown Tobacco Use/Smoking Question Answer Notes Patient is a nonsmoker Alcohol Screen Question Answer Notes Did you have a drink contain ing alcohol in the past year? Yes How often did you have a dri nk containing alcohol in the past year? 4 or more times a week (4 points) How many drinks did you have on a typical day when you were drinking in the past year? 1 or 2 drinks (0 point) How often did you have 6 or more drinks on one occasion in the past year? 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) Active confirmed 795455011 Problem Pain in throat (R07.0) Active confirmed [id number] Problem Other specified symptoms and signs involving the digestive system and abdomen (R19.8) Active confirmed [id number] Problem Perez esophagus (K22.70) Active confirmed Perez esophagus (211036265) VITAL SIGNS Temperature 97.3 degrees Fahrenheit 06/12/2023 Blood pressure diastolic 00 mm Hg 06/12/2023 Height 71 in 06/12/2023 Blood pressure systolic 00 mm Hg 06/12/2023 Weight 220 lbs 06/12/2023 BMI 30.68 kg/m2 06/12/2023 Encounters Encounter Location Date Provider Diagnosis [facility] Outpatient [address] [place] [phone] 08/05/2023 Zane Fitzpatrick Jr Perez esophagus K22.70 ; Throat pain R07.0 and Change in bowel movement R19.8 [facility] [address] [place] [phone] 06/12/2023 Zane Fitzpatrick Jr Perez's esophagus without dysplasia K22.70 and Pain in throat R07.0 [facility] [address] [place] [phone] 08/11/2023 Zane Fitzpatrick Jr ASSESSMENTS Encounter Date Diagnosis Assessment Notes Treatment Notes Treatment Clinical Notes 08/05/2023 Throat pain (ICD-10 - R07.0) 08/05/2023 Perez esophagus (ICD-10 - K22.70) 06/12/2023 Perez's esophagus without dysplasia (ICD-10 - K22.70) Endoscopy material was printed 06/12/2023 Pain in throat (ICD-10 - R07.0) 08/05/2023 Change in bowel movement (ICD-10 - R19.8) PLAN OF TREATMENT Future Test Test Name Order Date UPPER GI ENDOSCOPY 06/12/2023 Insurance Providers Payer Name Payer Address Payer Phone Subscriber Number Group Number Insured Name Patient Relationship to Insured Coverage Start Date Coverage End Date [facility] Medicare Advantage Plan [address] [address] [place] [address] [id number] SHANTE TATE Self - patient is the insured MEDICAL (GENERAL) HISTORY Medical History History ICD Code Renal cyst Hypertension Renal cell carcinoma, right Gastroesophageal reflux dise ase/Perez's esophagus, EGD 09/12/21, distal esophagitis, BE without dysplasia at EG junction Colonoscopy 12/03/18, diverticulosis, ten- year followup Anxiety Surgical History Surgery Date(Month/Year) right partial nephrectomy 2018 Bilateral knee replacements 2016
--- OUTSIDE RECORDS SUMMARY | 2024-05-16 00:15 | XMS_ITS ---
Author Organization [facility] Address [address] [place] [phone] Care Team Providers Care Technical Services Rep Name Role Phone Jo Osborne MD Primary Care Provider Zane Trujillo Jr ALLERGIES Allergen (clinical drug ingredient) Drug/Non Drug Allergy documented on EMR Reaction Allergy Type Onset Date Status oxycodone Oxycodone Unknown Drug Allergy Active oxycodone OxyCONTIN Unknown Drug Allergy Active REASON FOR VISIT Patient presents today for Perez's Esophagus,esophageal reflux MEDICATIONS Medication SIG (Take, Route, Frequency, Duration) Notes Start Date End Date Status Pantoprazole Sodium 40 MG 1 tablet Orall y Once a day for 30 day(s) 11/27/2022 Active [place] 3 1000 MG 1 capsule Orally Onc e a day for 30 day(s) 11/27/2022 Active Centrum Silver - as directed Orally 11/27/2022 Active Famotidine 40 MG TAKE 1 TABLET BY MENDEZ TH EVERY DAY AT BEDTIME Oral for 30 Active amLODIPine Besylate 5 MG TAKE 1 TABLET B Y MOUTH DAILY Oral for 90 Active SOCIAL HISTORY Tobacco Use: Social History Observation [...] Never (0 point) Points 4 Interpretation Positive VITAL SIGNS BMI 30.68 kg/m2 06/12/2023 Blood pressure systolic 00 mm Hg 06/12/20 23 Blood pressure diastolic 00 mm Hg 023 Height 71 in 06/12/2023 Temperature 97.3 degrees Fahrenheit 06/12/20 23 Weight 220 lbs 06/12/2023 Encounters Encounter Location Date Provider Diagnosis [facility] [address] [place] [address] 06/12/2023 Zane Fitzpatrick Jr Perez's esophagus without dysplasia K22.70 and Pain in throat R07.0 ASSESSMENTS Encounter Date Diagnosis Assessment Notes Treatment Notes Treatment Clinical Notes 06/12/2023 Perez's esophagus without dysplasia (ICD-10 - K22.70) Endoscopy material was printed 06/12/2023 Pain in throat (ICD-10 - R07.0) PLAN OF TREATMENT Treatment Notes Assessment Notes Perez's esophagus without dysplasia En doscopy material was printed Future Test Test Name Order Date UPPER GI ENDOSCOPY 06/12/2023 Next Appt Details Follow Up: 1 Year, Reason:
[2024-05-16 00:25] LABS: Alanine Aminotransferase 26 U/L (0-40); Albumin Level 4.4 g/dL (3.5-5.0); Alkaline Phosphatase 66 U/L (39-117); Anion Gap 12 (12-20); Aspartate Amino Transferase 20 U/L (5-37); Bilirubin Total 0.9 mg/dL (0.0-1.0); Blood Urea Nitrogen 22 mg/dL (9-16); Calcium 8.6 mg/dL (8.4-10.2); Carbon Dioxide 22 mmol/L (22-29); Chloride 109 mmol/L (96-108); Creatinine Clr Calc Pharmacy 85.1; Estimated Glomerular Filt Rate > 60; Glucose Random 156 mg/dL (60-115); Potassium 4.3 mmol/L (3.3-5.1); Sodium 139 mmol/L (135-145); Total Protein 7.4 g/dL (6.5-8.0)
[2024-05-16 01:18] LABS: Appearance Urine Clear; Color Urine Yellow; Glucose Urine UA Negative (Negative); Leukocyte Esterase Urine Negative (Negative); Nitrite Urine Negative (Negative); PH 5.5 (5.0-9.0); Specific Gravity - Urine >= 1.030 (1.005-1.025); UMIC TRIGGER UACC YES; Urine Blood Negative (Negative); Urine Ketones Trace mg/dL (Negative); Urine Protein 30 (1+) mg/dL (Neg-Trace)
[2024-05-16 01:29] LABS: Bacteria Urine None Seen (None Seen); Calcium Oxalate Crystals Urine Present; Hyaline Casts Urine 0-2 /LPF (0-2); RBC Urine 0-2 /HPF (0-2); Squamous Epithelial Cell Urine 0-2 /HPF (0-2); WBC Urine 0-5 /HPF (0-5)
[2024-05-16] MEDS: Tamsulosin HCL 0.4 MG CAPSULE PO (01:35)
[2024-05-16 01:51] VITALS: BP 143/78; PULSE 66; RESP 16; TEMP 36.7; O2SAT 96
[2024-05-16 02:51] VITALS: BP 143/78; PULSE 66; RESP 16; TEMP 36.7; O2SAT 96
== END 2024-05-16 02:52 | disposition home or self-care (01) ==
PROVIDERS: Emergency Provider Internal Medicine; PCP Internal Medicine
DX: N20.1 Calculus of ureter (principal); R10.2 Pelvic and perineal pain; R10.30 Lower abdominal pain, unspecified; R11.0 Nausea; Z79.899 Other long term (current) drug therapy
CPT/HCPCS: 36415; 51798; 74176; 80053; 81001; 85025; 96361; 96374; 96375; 99284; 99285; J1885; J2270; J2405

== ENCOUNTER 2024-09-13 12:57 | Outpatient (REF) | payer MEDICARE, SELFPAY ==
--- OUTSIDE RECORDS SUMMARY | 2024-09-13 13:55 | XMS_ITS ---
Author Organization [facility] Address [address] [place] [address] Care Team Providers Care Hydraulic Pile Hammer Operator Name Role Phone Jo Osborne MD Primary Care Provider Zane Trujillo Jr REASON FOR VISIT pathology Encounters Encounter Location Date Provider Diagnosis [facility] [address] [place] [phone] 08/11/2023 Zane Fitzpatrick Jr PLAN OF TREATMENT No Information
--- OUTSIDE RECORDS SUMMARY | 2024-09-13 13:55 | XMS_ITS | Patient Health Record ---
Author Organization [facility] Address [address] [place] [address] Care Team Providers Care Oil Laboratory Analyst Name Role Phone Jo Osborne MD Primary Care Provider Zane Trujillo Jr Unavailable ALLERGIES Allergen (clinical drug ingredient) Drug/Non Drug Allergy documented on EMR Reaction Allergy Type Onset Date Status oxycodone Oxycodone Unknown Drug Allergy Active oxycodone OxyCONTIN Unknown Drug Allergy Active REASON FOR REFERRAL No Information MEDICATIONS Medication SIG (Take, Route, Frequency, Duration) Notes Start Date End Date Status Pantoprazole Sodium 40 MG 1 tablet Orall y Once a day for 30 day(s) 11/27/2022 Active [place] 3 1000 MG 1 capsule Orally Onc [...] 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 [address] [place] [address] [id number] SHANTE TAET Self - patient is the insured MEDICAL (GENERAL) HISTORY Medical History History ICD Code Renal cyst Hypertension Renal cell carcinoma, right Gastroesophageal reflux dise ase/Perez's esophagus, EGD 09/12/21, distal esophagitis, BE without dysplasia at EG junction Colonoscopy 12/03/18, diverticulosis, ten- year followup Anxiety Surgical History Surgery Date(Month/Year) right partial nephrectomy 2018 Bilateral knee replacements 2017
--- OUTSIDE RECORDS SUMMARY | 2024-09-13 13:55 | XMS_ITS ---
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 Outpatient [address] [place] [phone] 08/05/2023 Zane Fitzpatrick Jr Carrion esophagus K22.70 ; Throat pain R07.0 and Change in bowel movement R19.8 ASSESSMENTS Encounter Date Diagnosis Assessment Notes Treatment Notes Treatment Clinical Notes 08/05/2023 Carrion esophagus (ICD-10 - K22.70) 08/05/2023 Throat pain (ICD-10 - R07.0) 08/05/2023 Change in bowel movement (ICD-10 - R19.8) PLAN OF TREATMENT No Information
--- OUTSIDE RECORDS SUMMARY | 2024-09-13 13:56 | XMS_ITS ---
Author Organization [facility] Address [address] [place] [address] Care Team Providers Care Law Tutor Name Role Phone Jo Osborne MD Primary Care Provider Zane Trujillo Jr [phone] ALLERGIES Allergen (clinical drug ingredient) Drug/Non Drug [...] a day for 30 day(s) 11/27/2022 Active Zebulon 3 1000 MG 1 capsule Orally Onc [...] 06/12/2023 Encounters Encounter Location Date Provider Diagnosis [facility] [address] [place] [address] 06/12/2023 Zane Fitzpatrick Jr Perez's esophagus without [...]
[2024-09-13 15:54] LABS: Appearance Urine Clear; Color Urine Yellow; Glucose Urine UA Negative (Negative); Leukocyte Esterase Urine Negative (Negative); Nitrite Urine Negative (Negative); Specific Gravity - Urine 1.025 (1.005-1.025); Urine Blood Negative (Negative); Urine Ketones Negative (Negative); Urine Protein Negative (Neg-Trace)
[2024-09-13 15:57] LABS: Bacteria Urine None Seen (None Seen); Hyaline Casts Urine 0-2 /LPF (0-2); RBC Urine 0-2 /HPF (0-2); Squamous Epithelial Cell Urine 0-2 /HPF (0-2); WBC Urine 0-5 /HPF (0-5)
== END 2024-09-13 12:58 | disposition home or self-care (01) ==
LOC: HO.HMGCLDS 12:57
PROVIDERS: PCP Internal Medicine; Visit Provider Internal Medicine
DX: N20.0 Calculus of kidney (principal); I10 Essential (primary) hypertension; Z79.899 Other long term (current) drug therapy
CPT/HCPCS: 81001; 96127; 99212

== ENCOUNTER 2024-09-13 12:57 | Outpatient (AMB) | payer MEDICARE, SELFPAY ==
[2024-09-13 13:10] VITALS: BP 126/80; PULSE 84; RESP 18; TEMP 36.7; O2SAT 95; BMI 29.8
--- NOTE | 2024-09-13 13:10 | MHC.PC.OV ---
Vital Signs 09/13/24 13:10 Height 5 ft 11 in Weight 214 lb BMI 29.8 BP 126/80 Blood Pressure Location Rt brachial Position Sitting Respiration 18 Pulse 84 Pulse Source Pulse Oximeter Temp 98.1 F Temp Source Oral Pulse Oximetry (%) 95 Oxygen Delivery Method Room Air Intake Visit Reasons: Kidney stone Intake Note: Pt is here today for a sick visit. Pt states that he had kidney stone on the L kidney back in April and he thought that he passed the stone but he is still having L side pain. Pt also states that he had R side rib pain. Allergies olmesartan Allergy (Unknown, Verified 09/13/24 13:16) Palpitations oxycodone Allergy (Unknown, Verified 09/13/24 13:16) can't think streight lisinopril Adverse Reaction (Unknown, Verified 09/13/24 13:16) dry cough Medication List - Last Reconciled 09/13/24 by Jo Osborne MD amlodipine 5 mg PO DAILY ibuprofen 600 mg PO Q6H PRN bikfjkcbprij-mdgdipaj-uhhrvf 1 tab PO DAILY omega-3 fatty acids 1,000 mg PO DAILY ondansetron 4 mg PO Q6-8H PRN pantoprazole 40 mg PO DAILY tamsulosin (Flomax) 0.4 mg PO BEDTIME Tobacco use date assessed: 09/13/24 Fall risk assessment: No Falls in past year Last assessed Fall Risk: 09/13/24 Dental Screening Dental Screen Date: 09/13/24 Did you have a dental visit in the last 12 months?: Yes Did you have a dental problem in the last 6 months where you did not have access to dental care?: No Was dental information given to patient?: Patient has dentist HPI Kidney stone HPI Details Patient presents complaining of persistent left-sided flank pain when sleeping on the left side occasionally radiating to left lower abdomen and is concerned about recurrence of kidney stone. Patient denies abdominal pain nausea vomiting fever chills hematochezia hematuria change in bowel habits or dysuria. [facility] Medical History (Updated 09/13/24 @ 13:59 by Jo Osborne MD) Diverticulosis Anxiety GERD (gastroesophageal reflux disease) Abdominal pain Renal cancer HTN (hypertension) Kidney stone Annual physical exam Surgical History History of left knee replacement H/O partial nephrectomy History of esophagogastroduodenoscopy (EGD) H/O colonoscopy History of inguinal hernia repair, bilateral History of tonsillectomy History of knee replacement procedure of right knee History of arthroscopy of right knee History of arthroscopy of left knee Family History Father No problems noted. Mother Diabetes mellitus Social History Housing: House Patient Tobacco Use Status: Never used Tobacco e-Cigarette/Vaping Use: Never Used service: Yes Current occupational status: employed Cognitive needs: No Hearing needs: No Vision needs: Yes Questionnaire PHQ-9 Over the last 2 weeks, how often have you been bothered by any of the following problems? 1. Little interest or pleasure in doing things: not at all 2. Feeling down, depressed, or hopeless: not at all 3. Trouble falling or staying asleep, or sleeping too much: not at all 4. Feeling tired or having little energy: not at all 5. Poor appetite or overeating: not at all 6. Feeling bad about yourself - or that you are a failure or have let yourself or your family down: not at all 7. Trouble concentrating on things, such as reading the newspaper or watching television: not at all 8. Moving or speaking so slowly that other people could have noticed. Or the opposite - being so fidgety or restless that you have been moving around a lot more than usual: not at all 9. Thoughts that you would be better off or of hurting yourself in some way: not at all Total score: 0 Depression Screening Interpretation: Negative Depression Screening Done: Yes 23746 - PHQ-9 Billing: Yes Source: Developed by Drs. Ki Franco, Holly Leung, Vincent German and colleagues, with an educational jean pierre from [employer]. Thrive Questionnaire Date Thrive assessed: 09/13/24 I am a: Patient What is your living situation today?: I have a steady place to live Within the past 12 months, did the food you bought not last and you didn't have the money to get more?: Never true Within the past 12 months, did you worry whether your food would run out before you got money to buy more?: Never true Do you have trouble paying for medicines?: No Do you have trouble getting transportation to medical appointments?: No Do you have trouble paying your heating and electricity bill?: No Do you have trouble taking care of your child, family member or friend?: No Do you have trouble with day-to-day activities such as bathing, preparing meals, shopping, managing finances, etc.?: No Are you currently unemployed and looking for a job?: No Are you interested in more education?: No Please select the resources that you would like help with: None Currently or been in a relationship where the following occur: No concerns reported THRIVE Score: 0 AUDIT C Alcohol Use Questionnaire (AUDIT-C) 1. How often do you have a drink containing alcohol?: 2-3 times a week 2. How many drinks containing alcohol do you have on a typical day when you are drinking?: 1 or 2 3. How often do you have six or more drinks on one occasion?: Never Total Score: 3 DARIN-7 AMB Questionnaire DARIN-7 Date DARIN - 7 assessed: 09/13/24 Feeling nervous, anxious, or on edge: 0 = Not at all Not being able to stop or control worryin = Not at all Worrying too much about different things: 0 = Not at all Trouble relaxin = Not at all Being so restless that it is hard to sit still: 0 = Not at all Becoming easily annoyed or irritable: 0 = Not at all Feeling afraid as if something awful might happen: 0 = Not at all Total DARIN-7 score (0-4 normal; 5-9 mild; 10-14 moderate; 15-21 severe): 0 Source: Developed by Drs. Ki Franco, Holly Leung, Vincent German and colleagues, with an educational jean pierre from [employer]. DARIN-7 Assessment Billing DARIN-7 Assessment Tool: DARIN-7 Assessment 65584 Review of Systems Const All systems reviewed & are unremarkable except as noted in HPI and below Eyes Reports no additional complaints ENT Reports no additional complaints Card Reports no additional complaints Resp Reports no additional complaints GI Reports no additional complaints Reports no additional complaints Physical exam (Primary Care) Vital Signs: Last Vital Signs Temp 98.1 F 09/13/24 13:10 Pulse 84 09/13/24 13:10 Resp 18 09/13/24 13:10 BP 126/80 09/13/24 13:10 Pulse Ox 95 09/13/24 13:10 Oxygen Delivery Method Room Air 09/13/24 13:10 BMI result Body Mass Index 29.8 Tobacco/Smoking Status: Tobacco use Status Tobacco use date assessed 09/13/24 09/13/24 13:24 Patient Tobacco Use Status Never used Tobacco 09/13/24 13:24 e-Cigarette/Vaping Use Never Used 09/13/24 13:11 PHQ-9: PHQ-9 Score PHQ-9: Total score 0 09/13/24 13:24 Depression Screening Interpretation: Negative Thrive Assessment: Date of Thrive Assessment Date Thrive assessed 09/13/24 09/13/24 13:24 Currently or been in a relationship where the following occur: No concerns reported Const General: no acute distress HENMT Head: Yes normal to inspection Resp Effort & Inspection: normal respiratory effort Auscultation: clear to auscultation bilaterally Cardio Rhythm: regular rhythm Heart sounds: S1 normal heart sound present and S2 normal heart sound present GI Inspection: Yes normal to inspection Palpation (GI): Soft to palpation Percussion: Yes normal to percussion Auscultation: normal bowel sounds General: Yes Bimanual renal exam normal bilaterally and Yes no CVA tenderness Back/Spine/Pelvis Back: no CVA tenderness Coding Level of Care Code Est Pt Level 3 (85604) Diagnoses Kidney stone N20.0 HTN (hypertension) I10 Additional Codes DARIN-7 Assessment Billing - DARIN-7 Assessment Tool: DARIN-7 Assessment 81324 ([id number]) PHQ-9 - 52524 - PHQ-9 Billing: Yes ([id number]) Assessment & Plan Assessment & Plan (1) Kidney stone: Code(s): N20.0 - Calculus of kidney Category: Medical Plan: Obtain renal ultrasound to rule out hydronephrosis and check UA for microscopic hematuria, increasing fluid intake discussed with the patient (2) HTN (hypertension): Code(s): I10 - Essential (primary) hypertension Category: Medical Plan: Continue Amlodipine Orders: Orders US renal BI Today N20.0 - Calculus of kidney UA w Microscopic Today N20.0 - Calculus of kidney Medications: Discontinued tamsulosin (Flomax) Discontinued Reason: Doctor's Order 0.4 mg PO BEDTIME 7 caps 0RF
== END 2024-09-13 13:52 | disposition home or self-care (01) ==
PROVIDERS: PCP Internal Medicine; Visit Provider Internal Medicine
DX: N20.0 Calculus of kidney (principal); I10 Essential (primary) hypertension

== ENCOUNTER 2025-02-22 09:18 | Outpatient (REF) | payer MEDICARE, SELFPAY ==
--- OUTSIDE RECORDS SUMMARY | 2025-02-22 09:45 | XMS_ITS | Encounter Summary ---
Author Organization [facility] Address [address] [place] [phone] Phone Care Team Providers Care Post Graduate Internship Name Role Phone Jo Osborne MD Primary Care Provider [phone] Jo Osborne MD Primary Care Provider [phone] Encounter Details Date Type Department Care Team (Late st Contact Info) Description 01/03/2022 Procedure [facility], Ct Scan - [address] [address] Social History Tobacco Use Types Packs/Day Years Used Date Smoking Tobacco: Never Smokeless Tobacco: Never Alcohol Use Standard Drinks/Week Comments Yes 7 (1 standard drink = 0.6 oz pur e alcohol) 1 per day Sex and Gender Information Value Date Recorded Sex Assigned at Not on file Legal Sex Male 9:51 PM EDT Gender Identity Not on file Sexual Orientation Not on file documented as of this encounter Plan of Treatment Not on file documented as of this encounter Visit Diagnoses Not on filedocumented in this encounter Care Teams Post Graduate Internship Relationship Specialty Start Date End Date Jo Osborne MD 1959 [facility] [address] PCP - General Internal Medicine 11/06/18 01/06/22 Jo Osborne MD 1959 [facility] [address] PCP - General Internal Medicine 01/07/22 documented as of this encounter Additional Source Comments The information contained in this document represents components of the legal health record. It is not the complete legal health record.[facility]
--- OUTSIDE RECORDS SUMMARY | 2025-02-22 09:45 | XMS_ITS | Patient Health Record ---
Author Organization [facility] Address [address] [place] [address] Care Team Providers Care Brilliandeer Looper Name Role Phone Jo Osborne MD Primary Care Provider Zane Trujillo Jr Unavailable [phone] Allergies Allergen (clinical drug ingredient) Drug/Non Drug Allergy documented on EMR Reaction Allergy Type Onset Date Status oxycodone Oxycodone Unknown Drug Allergy Active oxycodone OxyCONTIN Unknown Drug Allergy Active Reason For Referral No Information Medications Medication SIG (Take, Route, Frequency, Duration) Notes Start Date End Date Status amLODIPine Besylate 5 MG TAKE 1 TABLET B Y MOUTH DAILY Oral for 90 Active Centrum Silver - as directed Orally 11/27/2022 Active Protein 80 % as directed Orally Active NexIUM 40 MG 1 capsule 1/2 to 1 h our before morning meal Orally Once a day for 30 days 02/10/2025 Active Brunswick 3 1000 MG 1 capsule Orally Onc e a day for 30 day(s) 11/27/2022 Active Immunizations Vaccine Route Administration Date Status Comme nts Influenza Unknown 05/14/2022 Administered Influenza Unknown 05/17/2024 Administered Social History Tobacco Use: Social History Observation [...] Never (0 point) Points 4 Interpretation Positive Problems Problem Type SNOMED Code ICD Code Onset Dates Problem Status W/U Status Risk Notes Problem 417902965 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) Active confirmed Problem 483479617 Pain in throat (R07.0) Active confirmed Problem 404791883 Other specified symptoms and signs involving the digestive system and abdomen (R19.8) Active confirmed Problem Perez esophagus (K22.70) Active confirmed Vital Signs Temperature 97.3 degrees Fahrenheit 02/02/2025 Blood pressure diastolic 01 mm Hg 02/02/2025 Height 71 in 02/02/2025 Blood pressure systolic 001 mm Hg 02/02/2025 Weight 213.5 lbs 02/02/2025 BMI 29.77 kg/m2 02/02/2025 Encounters Encounter Location Date Provider Diagnosis [facility] [address] [place] [address] [place] [phone] 02/02/2025 Zane Fitzpatrick Jr [facility] [address] [place] [address] [place] [phone] 12/08/2024 Zane Fitzpatrick Jr [facility] [address] [place] [address] [place] [phone] 02/09/2025 Zane Fitzpatrick Jr Perez's esophagus without dysplasia K22.70 Assessments Encounter Date Diagnosis (ICD Code) Assessment Notes Treatment Notes Treatment Clinical Notes Section Notes 02/09/2025 Perez's esophagus without dysplasia (ICD-10 - K22.70) Plan Of Treatment Future Test Test Name Order Date UPPER GI ENDOSCOPY 06/12/2023 Next Appt Details Provider Name:Zane duran Jr, 02/06/2026 09:20:00 AM, [address] [facility], [address], [place], [address], Insurance Providers Payer Name Payer Address Payer Phone Subscriber Number Group Number Insured Name Patient Relationship to Insured Coverage Start Date Coverage End Date [facility] Medicare Advantage Plan [address] [address] [place] [address] [id number] SHANTE TATE Self - patient is the insured Medical (General) History Medical History History ICD Code Renal cyst Hypertension Renal cell carcinoma, right Gastroesophageal reflux dise ase/Perez's esophagus, EGD 09/12/21, distal esophagitis, BE without dysplasia at EG junction Colonoscopy 12/03/18, diverticulosis, ten- year followup Anxiety Surgical History Surgery Date(Month/Year) Bilateral knee replacements 2016 right partial nephrectomy 2018
[2025-02-22 10:07] LABS: MANUAL DIFF FLAG NO
[2025-02-22 10:20] LABS: Hematocrit 42.1 % (42.0-52.0); Hemoglobin 14.7 g/dl (14.0-18.0); Imm Gran Abs Auto 0.01 X10*3/uL (0.00-0.03); Imm Gran Pct Auto 0.2 % (0.0-0.4); Lymphocytes Absolute Auto 2.0 X10*3/uL (1.2-4.9); Mean Corpuscular HGB Conc 34.9 g/dl (31.0-36.0); Mean Corpuscular Hemoglobin 31.7 pg (27.0-33.0); Mean Corpuscular Volume 90.7 fL (80.0-98.0); NRBC Abs Auto 0.000 X10*3/uL (0.0-0.012); NRBC Pct Auto 0.0 /100WBC (0.0-0.2); Platelet Count 207 X10*3/uL (160-400); Red Blood Count 4.64 X10*6/uL (4.60-5.80); White Blood Count 6.3 X10*3/uL (4.8-10.8)
[2025-02-22 10:22] LABS: Hemoglobin A1C 123.7651 umol/L; Total Hemoglobin (HGBA1C) 3801.9295 umol/L
[2025-02-22 11:07] LABS: PSA,Total (Free>4and<10) 2.03 ng/mL (0.00-4.00)
[2025-02-22 11:11] LABS: Alanine Aminotransferase 26 U/L (0-40); Albumin Level 4.5 g/dL (3.5-5.0); Alkaline Phosphatase 63 U/L (39-117); Anion Gap 11 (12-20); Aspartate Amino Transferase 23 U/L (5-37); Blood Urea Nitrogen 20 mg/dL (9-16); Calcium 9.1 mg/dL (8.4-10.2); Carbon Dioxide 28 mmol/L (22-29); Chloride 109 mmol/L (96-108); Cholesterol 155 mg/dL (<200); Estimated Glomerular Filt Rate > 60; HDL Cholesterol 44 mg/dL (>40); Potassium 4.6 mmol/L (3.3-5.1); Sodium 143 mmol/L (135-145); Total Protein 7.1 g/dL (6.5-8.0); Triglycerides 81 mg/dL (<150)
[2025-02-22 11:18] LABS: Appearance Urine Clear; Glucose Urine UA Negative (Negative); PH 5.5 (5.0-9.0); Specific Gravity - Urine 1.025 (1.005-1.025)
== END 2025-02-22 09:19 | disposition home or self-care (01) ==
LOC: HO.HMGCLDS 09:18
PROVIDERS: PCP Internal Medicine; Visit Provider Internal Medicine
DX: Z00.00 Encounter for general adult medical examination without abnormal findings (principal); I10 Essential (primary) hypertension; R73.9 Hyperglycemia, unspecified; N20.0 Calculus of kidney; E55.9 Vitamin D deficiency, unspecified; Z12.5 Encounter for screening for malignant neoplasm of prostate
CPT/HCPCS: 36415; 80053; 80061; 81001; 82306; 83036; 84153; 85025

== ENCOUNTER 2025-02-24 12:22 | Outpatient (AMB) | payer MEDICARE, SELFPAY ==
[2025-02-24 12:37] VITALS: BP 124/78; PULSE 71; RESP 18; TEMP 36.7; O2SAT 97; BMI 29.8
--- NOTE | 2025-02-24 12:37 | MHC.PC.OV ---
Vital Signs 02/24/25 12:37 Height 5 ft 11 in Weight 214 lb BMI 29.8 BP 124/78 Blood Pressure Location Lt brachial Position Sitting Respiration 18 Pulse 71 Pulse Source Pulse Oximeter Temp 98.1 F Temp Source Oral Pulse Oximetry (%) 97 Oxygen Delivery Method Room Air Intake Visit Reasons: Annual PE - see comments Intake Note: Pt is here today for PE. Allergies olmesartan Allergy (Unknown, Verified 02/24/25 12:39) Palpitations oxycodone Allergy (Unknown, Verified 02/24/25 12:39) can't think streight lisinopril Adverse Reaction (Unknown, Verified 02/24/25 12:39) dry cough Medication List - Last Reconciled 02/24/25 by Jo Osborne MD amlodipine 5 mg PO DAILY esomeprazole magnesium 40 mg PO DAILY ibuprofen 600 mg PO Q6H PRN zmrjlrtqxmib-rnahhgwg-libqri 1 tab PO DAILY omega-3 fatty acids 1,000 mg PO DAILY Tobacco use date assessed: 02/24/25 Fall risk assessment: No Falls in past year Last assessed Fall Risk: 02/24/25 Dental Screening Dental Screen Date: 02/24/25 Did you have a dental visit in the last 12 months?: Yes Did you have a dental problem in the last 6 months where you did not have access to dental care?: No Was dental information given to patient?: Patient has dentist HPI Annual PE - see comments HPI Details Pt presents for PE. Patient retired and has been spending a lot of time with his 5 grandkids. [facility] Medical History (Updated 02/24/25 @ 13:27 by Jo Osborne MD) Diverticulosis Anxiety GERD (gastroesophageal reflux disease) Abdominal pain Renal cancer HTN (hypertension) Kidney stone Annual physical exam Surgical History History of left knee replacement H/O partial nephrectomy History of esophagogastroduodenoscopy (EGD) H/O colonoscopy History of inguinal hernia repair, bilateral History of tonsillectomy History of knee replacement procedure of right knee History of arthroscopy of right knee History of arthroscopy of left knee Family History Father No problems noted. Mother Diabetes mellitus Social History Housing: House Patient Tobacco Use Status: Never used Tobacco e-Cigarette/Vaping Use: Never Used service: Yes Current occupational status: employed Cognitive needs: No Hearing needs: No Vision needs: Yes Questionnaire Thrive Questionnaire Date Thrive assessed: 09/13/24 I am a: Patient What is your living situation today?: I have a steady place to live Within the past 12 months, did the food you bought not last and you didn't have the money to get more?: Never true Within the past 12 months, did you worry whether your food would run out before you got money to buy more?: Never true Do you have trouble paying for medicines?: No Do you have trouble getting transportation to medical appointments?: No Do you have trouble paying your heating and electricity bill?: No Do you have trouble taking care of your child, family member or friend?: No Do you have trouble with day-to-day activities such as bathing, preparing meals, shopping, managing finances, etc.?: No Are you currently unemployed and looking for a job?: No Are you interested in more education?: No Please select the resources that you would like help with: None Currently or been in a relationship where the following occur: No concerns reported THRIVE Score: 0 DARIN-7 AMB Questionnaire DARIN-7 Date DARIN - 7 assessed: 09/13/24 Source: Developed by Drs. Ki Franco, Holly Leung, Vincent German and colleagues, with an educational jean pierre from [employer]. Review of Systems Const All systems reviewed & are unremarkable except as noted in HPI and below Reports no additional complaints Eyes Reports no additional complaints ENT Reports no additional complaints Card Reports no additional complaints Resp Reports no additional complaints GI Reports no additional complaints Reports no additional complaints Physical exam (Primary Care) Vital Signs: Last Vital Signs Temp 98.1 F 02/24/25 12:37 Pulse 71 02/24/25 12:37 Resp 18 02/24/25 12:37 BP 124/78 02/24/25 12:37 Pulse Ox 97 02/24/25 12:37 Oxygen Delivery Method Room Air 02/24/25 12:37 BMI result Body Mass Index 29.8 Tobacco/Smoking Status: Tobacco use Status Tobacco use date assessed 02/24/25 02/24/25 12:44 Patient Tobacco Use Status Never used Tobacco 02/24/25 12:44 e-Cigarette/Vaping Use Never Used 02/24/25 12:44 Thrive Assessment: Date of Thrive Assessment Date Thrive assessed 09/13/24 02/24/25 12:44 Currently or been in a relationship where the following occur: No concerns reported Const General: no acute distress HENMT Head: Yes normal to inspection Ears: hearing grossly normal bilaterally Face and sinus: Yes normal facial exam Throat: Yes posterior oropharynx normal Eyes General: appearance normal, both eyes and all related structures Neck Neck: Yes no lymphadenopathy and Yes supple Resp Effort & Inspection: normal respiratory effort Auscultation: clear to auscultation bilaterally Cardio Rhythm: regular rhythm Heart sounds: S1 normal heart sound present and S2 normal heart sound present GI Inspection: Yes normal to inspection Palpation (GI): Soft to palpation Percussion: Yes normal to percussion Auscultation: normal bowel sounds Coding Level of Care Code Est Pt Prev Care >65y(09932) Diagnoses Annual physical exam Z00.00 GERD (gastroesophageal reflux disease) K21.9 HTN (hypertension) I10 Kidney stone N20.0 Renal cancer C64.9 Assessment & Plan Assessment & Plan (1) Annual physical exam: Code(s): Z00.00 - Encounter for general adult medical examination without abnormal findings Category: Medical Plan: Well-balanced diet regular physical activity discussed with the patient. (2) GERD (gastroesophageal reflux disease): Comment: EGD at [facility] Perez's esophagus, no dysplasia, chronic gastritis, f/u Dr. Fitzpatrick, repeat EGD 08/20 active Perez's esophagus but no dysplasia, repeat in 3 yrs Code(s): K21.9 - Gastro-esophageal reflux disease without esophagitis Category: Medical Plan: Continue PPI follow-up with GI for repeat EGD in 2026 (3) HTN (hypertension): Code(s): I10 - Essential (primary) hypertension Category: Medical Plan: Continue amlodipine (4) Kidney stone: Comment: CT abd/pelvis 04/2024 4 mm ureterovesicular junction calculus with mild left hydronephrosis Code(s): N20.0 - Calculus of kidney Category: Medical Plan: Check renal ultrasound (5) Renal cancer: Comment: s/p R nephrectomy at [facility] 01/2019 Code(s): C64.9 - Malignant neoplasm of unspecified kidney, except renal pelvis Category: Medical Plan: Follow-up with Urology PRN Orders: Orders Comprehensive [place]. Panel Fast 1 Year I10 - Essential (primary) hypertension, K21.9 - Gastro-esophageal reflux disease without esophagitis, Z00.00 - Encounter for general adult medical examination without abnormal findings Complete Blood Count Auto Diff 1 Year I10 - Essential (primary) hypertension, K21.9 - Gastro-esophageal reflux disease without esophagitis, Z00.00 - Encounter for general adult medical examination without abnormal findings UA w Microscopic 1 Year I10 - Essential (primary) hypertension, K21.9 - Gastro-esophageal reflux disease without esophagitis, Z00.00 - Encounter for general adult medical examination without abnormal findings US renal BI Today N20.0 - Calculus of kidney Lipid Panel 1 Year I10 - Essential (primary) hypertension, K21.9 - Gastro-esophageal reflux disease without esophagitis, Z00.00 - Encounter for general adult medical examination without abnormal findings PSA,Total (Free>4and<10) 1 Year I10 - Essential (primary) hypertension, K21.9 - Gastro-esophageal reflux disease without esophagitis, Z00.00 - Encounter for general adult medical examination without abnormal findings
--- OUTSIDE RECORDS SUMMARY | 2025-02-24 12:42 | XMS_ITS | Encounter Summary ---
Author Organization [facility] Address [address] [place] [address] Phone Care Team Providers Care Employment Trainer Name Role Phone Jo Osborne MD Primary Care Provider [phone] Jo Osborne MD Primary Care Provider [phone] Encounter Details Date Type Department Care Team (Late st Contact Info) Description 01/03/2022 Procedure Pass [facility], Ct Scan - [address] [address] Social History Tobacco Use Types Packs/Day Years [...] on filedocumented in this encounter Care Teams Employment Trainer Relationship Specialty Start Date End Date Jo Osborne MD [address] [facility] [place] [address] PCP - General Internal Medicine 11/06/18 01/06/22 Jo Osborne MD [address] [place] [place] [address] PCP - General Internal Medicine 01/07/22 documented as of this encounter Additional Source Comments The information contained in this document represents components of the legal health record. It is not the complete legal health record.[facility]
--- OUTSIDE RECORDS SUMMARY | 2025-02-24 12:42 | XMS_ITS | Patient Health Record ---
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) Active confirmed Problem 282820190 Pain in throat (R07.0) Active confirmed Problem 438901467 Other specified symptoms and signs involving the digestive system and abdomen (R19.8) Active confirmed Problem Perez esophagus (K22.70) Active confirmed Vital Signs Temperature 97.3 degrees Fahrenheit 02/02/2025 Blood pressure diastolic 01 mm Hg 02/02/2025 Height 71 in 02/02/2025 Blood pressure systolic 001 mm Hg 02/02/2025 Weight 213.5 lbs 02/02/2025 BMI 29.77 kg/m2 02/02/2025 Encounters Encounter Location Date Provider Diagnosis [facility] [address] [place] [address] [place] [phone] 02/02/2025 Zane Fitzpatrick Jr [facility] [address] [place] [address] [place] [phone] 12/08/2024 Zane Fitzpatrick Jr [facility] [address] [place] [address] [place] [phone] 02/09/2025 Zane Fitzpatrick Jr Perez's esophagus without dysplasia K22.70 Assessments Encounter Date Diagnosis (ICD Code) Assessment Notes Treatment Notes Treatment Clinical Notes Section Notes 02/09/2025 Perez's esophagus without dysplasia (ICD-10 - K22.70) Plan Of Treatment Future Test Test Name Order Date UPPER GI ENDOSCOPY 06/12/2023 Next Appt Details Provider Name:Zane duran Jr, 02/06/2026 09:20:00 AM, [address] [facility], [address], [place], [address], Insurance Providers Payer Name Payer Address Payer Phone Subscriber Number Group Number Insured Name Patient Relationship to Insured Coverage Start Date Coverage End Date [facility] Medicare Advantage Plan [address] [address] [place] [address] [id number] SHANTE TATE Self - patient is the [...]
== END 2025-02-24 13:06 | disposition home or self-care (01) ==
LOC: HO.HMCC 12:23
PROVIDERS: PCP Internal Medicine; Visit Provider Internal Medicine
DX: Z00.00 Encounter for general adult medical examination without abnormal findings (principal); K21.9 Gastro-esophageal reflux disease without esophagitis; C64.9 Malignant neoplasm of unspecified kidney, except renal pelvis; I10 Essential (primary) hypertension; N20.0 Calculus of kidney

== ENCOUNTER → 2025-02-24 12:22 | Outpatient (BNVA) | payer MEDICARE, SELFPAY | PROVIDERS: PCP Internal Medicine; Visit Provider Internal Medicine | DX: Z00.00 Encounter for general adult medical examination without abnormal findings (principal); K21.9 Gastro-esophageal reflux disease without esophagitis; I10 Essential (primary) hypertension; N20.0 Calculus of kidney; C64.9 Malignant neoplasm of unspecified kidney, except renal pelvis | CPT/HCPCS: 99397 ==

== ENCOUNTER 2025-03-23 11:26 | Outpatient (REF) | payer MEDICARE, SELFPAY ==
--- OUTSIDE RECORDS SUMMARY | 2024-12-09 10:15 | XMS_ITS ---
Author Organization [facility] Address [address] [place] [address] [place] [address] Care Team Providers Care Hospital Admissions Clerk Name Role Phone Jo Osborne MD Primary Care Provider Zane Trujillo Jr REASON FOR VISIT Pt to discuss a different RX for the Perez's Esophagus Encounters Encounter Location Date Provider Diagnosis [facility] [address] [place] [phone] 12/09/2024 Zane Fitzpatrick Jr Plan Of Treatment Next Appt Details Provider Name:Zane duran Jr, 02/06/2026 09:20:00 AM, [address] [place] [address], Suite [facility], [place], [address], Progress Notes * SHANTE TATE FDOB:1955 (69 yo M)Acc No.[id number]:12/09/2024 Progress Notes Patient: SHANTE HAN Provider: Jeb Fitzpatrick MD :1955 A ge:68 Y S ex:Male Date:12/09/2024 Address:[address] [place], [place] [phone] Pcp:Jo Osborne MD Subjective: * Chief Complaints: * 1 . Pt to discuss a different RX for the Perez's Esophagus. * Medical History: Objective: * Vitals: Assessment: Plan: * Treatment: * * The named appointment provid er may or may not be the originator of this progress note, and it is not deemed complete until electronically signed by the appointment provider. Sign off status: Pending * Provider: Jeb Fitzpatrick MD Date: 0 12/09/2024 Generated for Alma paulino/Bryson/Thuy on: 0 03/23/2025 12:21 PM EDT
--- OUTSIDE RECORDS SUMMARY | 2025-02-02 05:20 | XMS_ITS ---
Author Organization [facility] Address [address] [place] [address] Care Team Providers Care Emergency Detail Driver Name Role Phone Jo Osborne MD Primary Care Provider Zane Trujillo Jr [phone] Allergies Allergen (clinical drug ingredient) Drug/Non Drug Allergy documented on EMR Reaction Allergy Type Onset Date Status oxycodone Oxycodone Unknown Drug Allergy Active oxycodone OxyCONTIN Unknown Drug Allergy Active REASON FOR VISIT Pt presents today to discuss a different RX for the Perez's Esophagus Medications Medication SIG (Take, Route, Frequency, Duration) Notes Start Date End Date Status Pantoprazole Sodium 40 MG 1 tablet Orall y Once a day for 30 day(s) 11/27/2022 Active Centrum Silver - as directed Orally 11/27/2022 Active Protein 80 % as directed Orally Active [place] 3 1000 MG 1 capsule Orally Onc e a day for 30 day(s) 11/27/2022 Active amLODIPine Besylate 5 MG TAKE 1 TABLET B Y MOUTH DAILY Oral for 90 Active Social History Tobacco Use: Social History Observation Description Date Details (start date - stop date) Never Smoker NA - NA Tobacco Use/Smoking Question Answer Notes Patient is [...] Never (0 point) Points 4 Interpretation Positive Vital Signs Temperature 97.3 degrees Fahrenheit 02/03/20 25 Blood pressure systolic 001 mm Hg 02/03/20 25 Blood pressure diastolic 01 mm Hg 025 Height 71 in 02/02/2025 Weight 213.5 lbs 02/02/2025 BMI 29.77 kg/m2 02/02/2025 Encounters Encounter Location Date Provider Diagnosis [facility] [address] [place] [address] 02/02/2025 Zane Fitzpatrick Jr Plan Of Treatment Next Appt Details Provider Name:Zane duran Jr, 02/06/2026 09:20:00 AM, [address], [address], [place], [address], Progress Notes * SHANTE TATE FDOB:1955 (69 yo M)Acc No.[id number]:02/02/2025 Progress Notes Patient: SHANTE HAN Provider: Jeb Fitzpatrick MD :1955 A ge:69 Y S ex:Male Date:02/02/2025 Address:[address] [place], [place] [phone] Pcp:Jo Osborne MD Subjective: * Chief Complaints: * 1 . Pt presents today to discuss a different RX for the Perez's Esophagus. * Medical History: R enal cyst, Hypertension, Renal cell carcinoma, right, Gastroesophageal reflux disease/Perez's esophagus, EGD 09/12/21, distal esophagitis, BE without dysplasia at EG junction, Colonoscopy 12/03/18, diverticulosis, ten-year followup, Anxiety. * Surgical History: r ight partial nephrectomy 2019, Bilateral knee replacements 2017. * Family History: F ather: . M other: alive, diagnosed with HTN (hypertension), Diabetes. No family history of colon cancer or liver cancer. * Social History: T obacco Use: T obacco Use/Smoking P atient is a n onsmoker. D rugs/Alcohol: A lcohol Screen D id you have a drink containing alcohol in the past year? Y es, H ow often did you have a drink containing alcohol in the past year? 4 or more times a week (4 points), H ow many drinks did you have on a typical day when you were drinking in the past year??1 or 2 drinks (0 point), H ow often did you have 6 or more drinks on one occasion in the past year? N ever (0 point), P oints 4 , I nterpretation P ositive. M iscellaneous: M arital status: . Occupation: works full-time financial services/ self employed. * Medications: T aking Protein 80 % Powder as directed Orally , Taking Pantoprazole Sodium 40 MG Tablet Delayed Release 1 tablet Orally Once a day , Taking amLODIPine Besylate 5 MG Tablet TAKE 1 TABLET BY MOUTH DAILY Oral , Taking Centrum Silver - Tablet as directed Orally , Taking [place] 3 1000 MG Capsule 1 capsule Orally Once a day , Discontinued Famotidine 40 MG Tablet TAKE 1 TABLET BY MOUTH EVERY DAY AT BEDTIME Oral , Medication List reviewed and reconciled with the patient * Allergies: O xycodone, OxyCONTIN. Objective: * Vitals: W t:213.5lbs, Ht: 71 in, BMI:29.77Index, BP:001/01mm Hg, Temp:97.3, Wt-k.84. Assessment: Plan: * Treatment: * Preventive Medicine: Counseling: C are goal follow-up plan: A koby Normal BMI Follow-up D ietary management education, guidance, and counseling, B VA management provided Y es. Screenings: F all Risk Screening F all Risk Assessment: N o falls in the past year, S creening: N o falls in the past year, A ssessment: N ot performed, no reason specified, P andreas of Care: N ot documented, no reason specified. * * The named appointment provid er may or may not be the originator of this progress note, and it is not deemed complete until electronically signed by the appointment provider. Sign off status: Pending * Provider: Jeb Fitzpatrick MD Date: 0 02/02/2025 Generated for Alma paulino/Bryson/Havenitting on: 03/23/2025 12:21 PM EDT
--- NOTE | ~2025-03-23 | US_ITS ---
CLINICAL HISTORY: N20.0 - Calculus of kidney US of kidneys Comparison: None provided Findings: Right kidney is normal in size, echogenicity and morphology, 11.1 cm in length. No calculus or hydronephrosis. Parapelvic cysts of the interpolar region 1.6 x 1.2 cm. Left kidney is normal in size, echogenicity and morphology, 13.5 cm in length. No calculus. Dilated lobulated extrarenal pelvis 6.1 x 4.6 cm versus hydronephrosis. Limited color Doppler demonstrates unremarkable bilateral blood flow. Impression: 1. Left renal dilated extrarenal pelvis versus hydronephrosis, difficult to differentiate, CT urogram can be helpful for further evaluation. 2. No nephrolithiasis. This document has been electronically signed by: Malia Yuen MD on 03/23/2025 13:06:57
--- OUTSIDE RECORDS SUMMARY | 2025-03-23 12:21 | XMS_ITS | Encounter Summary ---
Author Organization [facility] Address [address] [place] [address] Phone Care Team Providers Care Dog Handler Name Role Phone Shubham Jacobs MD Unavailable [phone] Omi Parada MD Unavailable [phone] Jesica Dennis PA-C Unavailable [phone] Jo Osborne MD Primary Care Provider [phone] Jo Osborne MD Primary Care Provider [phone] Encounter Details Date Type Department Care Team (Late st Contact Info) Description 11/27/2018 Procedure Pass [address] [place] [address] Social History Tobacco Use Types Packs/Day Years Used Date Smoking Tobacco: Never Smokeless Tobacco: Never Alcohol Use Standard Drinks/Week Comments Yes 0 (1 standard drink = 0.6 oz pur e alcohol) 5 per week Sex and Gender Information Value Date Recorded Sex Assigned at Not on file Legal Sex Male 9:51 PM EDT Gender Identity Not on file Sexual Orientation Not on file documented as of this encounter Plan of Treatment Not on file documented as of this encounter Visit Diagnoses Not on filedocumented in this encounter Care Teams Dog Handler Relationship Specialty Start Date End Date Jo Osborne MD [address] [place] [address] PCP - General Internal Medicine 11/06/18 01/06/22 Jo Osborne MD [address] [place] [address] [place] [address] PCP - General Internal Medicine 01/07/22 Shubham Jacobs MD [address] [place] [address] [email or web address] Historical LMR Provider 05/15/17 08/04/21 Omi Parada MD [address] [place] [address], [address] [place] [address] [email or web address] Historical LMR Provider 05/15/17 08/04/21 Jesica Dennis PA-C [address] [place] [address] Orthopedics & Sports Medicine, [place] [address] [email or web address] Historical LMR Provider 05/15/17 08/04/21 documented as of this encounter Additional Source Comments The information contained in this document represents components of the legal health record. It is not the complete legal health record.[facility]
--- OUTSIDE RECORDS SUMMARY | 2025-03-23 12:21 | XMS_ITS | Encounter Summary ---
Author Organization [facility] Address [address] [place] [address] Phone Care Team Providers Care Vegetable Worker Name Role Phone Shubham Jacobs MD Unavailable Omi Parada MD Unavailable [phone] Jesica DennisC Unavailable [phone] Jo Osborne MD Primary Care Provider [phone] Jo Osborne MD Primary Care Provider [phone] Encounter Details Date Type Department Care Team (Late st Contact Info) Description 11/06/2018 Ancillary Orders [facility], X-Ray - [address] [address] All Coleman MD [address] [place] [address], [place] [address] [email or web address] Neoplasm of uncertain behavior of right kidney Social History Tobacco Use Types Packs/Day Years Used Date Smoking Tobacco: Never Assessed Sex and Gender Information Value Date Recorded Sex Assigned at Not on file Legal Sex Male 9:51 PM EDT Gender Identity Not on file Sexual Orientation Not on file documented as of this encounter Plan of Treatment Not on file documented as of this encounter Results * XR CHEST PA AND LATERAL 2 VIEWS (11/06/2018 9:37 AM EDT) Anatomical Region Laterality Modality Chest Radiographic Sandy ging 11/06/2018 9:38 AM EDT Impressions 11/06/2018 9:40 AM EDT No evidence of metastatic disease. POS - [id number] Narrative 11/06/2018 9:40 AM EDT HISTORY: As above. COMPARISON: None. CHEST RADIOGRAPH FINDINGS: Two views obtained. Heart and mediastinum are normal. Lungs are clear. Mild thoracic spondylosis. Soft tissues are normal. Procedure Note Weston Mathias MD - 11/06/2018 HISTORY: As above. COMPARISON: None. CHEST RADIOGRAPH FINDINGS: Two views obtained. Heart and mediastinum are normal. Lungs are clear.Mild thoracic spondylosis. Soft tissues are normal. IMPRESSION: No evidence of metastatic disease. 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 documented in this encounter Care Teams Vegetable Worker Relationship Specialty Start Date End Date Jo Osborne MD [address] [facility] [address] PCP - General Internal Medicine 11/06/18 01/06/22 Jo Osborne MD [address] [facility] [place] [address] PCP - General Internal Medicine 01/07/22 Shubham Jacobs MD [address] [place] [address] Historical LMR Provider 05/15/17 08/04/21 Omi Parada MD [address] [place] [address], [address] [place] [address] Historical LMR Provider 05/15/17 08/04/21 Jesica Dennis PA-C [address] [place] [address] Orthopedics & Sports Medicine, [facility] [place] [address] [email or web address] Historical LMR Provider 05/15/17 08/04/21 documented as of this encounter Additional Source Comments The information contained in this document represents components of the legal health record. It is not the complete legal health record.[facility]
--- OUTSIDE RECORDS SUMMARY | 2025-03-23 12:21 | XMS_ITS | Encounter Summary ---
Author Organization [facility] Address [address] [place] [address] Phone Care Team Providers Care Telemarketer Supervisor Name Role Phone Jo Osborne MD Primary Care Provider [phone] Jo Osborne MD Primary Care Provider [phone] Encounter Details Date Type Department Care Team (Late st Contact Info) Description 09/12/2021 Procedure Pass [facility] Endoscopy Admitting Dept Virtual Department [address] [place] [address] Social History Tobacco Use Types Packs/Day Years [...] on filedocumented in this encounter Care Teams Telemarketer Supervisor Relationship Specialty Start Date End Date Jo Osborne MD [address] [facility] [place] [address] PCP - General Internal Medicine 11/06/18 01/06/22 Jo Osborne MD [address] [facility] [place] [address] PCP - General Internal Medicine 01/07/22 documented as of this encounter Additional Source Comments The information contained in this document represents components of the legal health record. It is not the complete legal health record.[facility]
--- OUTSIDE RECORDS SUMMARY | 2025-03-23 12:21 | XMS_ITS | Clinical Summary ---
Author Organization [facility] Address [address] [place] [address] Phone Care Team Providers Care Tripe Washer Name Role Phone Jo Osborne MD Primary Care Provider [phone] Allergies Active Allergy Reactions Criticality Noted Date Comments Oxycodone Unknown 11/27/2018 Medications omega-3 fatty acids 1,000 mg Cap Take 1 capsule by mouth daily. Active amLODIPine (NORVASC) 5 MG tablet 2 Active therapeutic multivitamin tablet Take 1 tablet by mouth. Active coenzyme Q10 100 mg capsule Take 100 mg by mouth daily. Active naproxen sodium (ALEVE) 220 MG tablet Take 220 mg by mouth every 12 (twelve) hours as needed for pain (specific location in comments). Active pantoprazole (PROTONIX) 40 MG tablet Take 1 tablet by mouth every morning. 3 Active Active Problems Problem Noted Date Diagnosed Date Primary osteoarthritis of both knees 07/15/2017 Frequent PVCs 07/15/2017 History of hyperglycemia 07/15/2017 History of nephrolithiasis 07/15/2017 History of total right knee replacement 07/15/20 17 Presence of left artificial knee joint 7 Primary osteoarthritis of left knee 07/15/2017 Trochanteric bursitis of left hip 07/15/2017 Social History Tobacco Use Types Packs/Day Years Used Date Smoking Tobacco: Never Smokeless Tobacco: Never Alcohol Use Standard Drinks/Week Comments Yes 7 (1 standard drink = 0.6 oz pur e alcohol) 1 per day Education Answer Date Recorded Are you interested in more education? Not on sheeba e 11/22/2022 Are you concerned about learning? Not on file 11/22/2022 No 11/22/2022 No 11/22/2022 Digital Access Answer Date Recorded No 12/21/2022 No 12/21/2022 Reliable internet access at home? Not on file 12/21/2022 Device with a working camera? Not on file Sex and Gender Information Value Date Recorded Sex Assigned at Not on file Legal Sex Male 9:51 PM EDT Gender Identity Not on file Sexual Orientation Not on file Last Filed Vital Signs Vital Sign Reading Time Taken Comments Blood Pressure 120/73 06/20/2023 1:27 PM EST Pulse 72 06/20/2023 1:27 PM EST Temperature 36.5 C (97.7 F) 06/20/2023 1:27 PM EST Respiratory Rate 16 06/20/2023 1:27 PM EST Oxygen Saturation 96% 06/20/2023 1:27 PM EST Inhaled Oxygen Concentration - - Weight 99.3 kg (219 lb) 06/20/2023 1:27 PM EST Height 180.3 cm (5' 11 ) 06/20/2023 1:27 PM EST Body Mass Index 30.54 06/20/2023 1:27 PM EST Plan of Treatment Health Maintenance Due Date Last Done Comments Adult Td,Tdap Booster 1955 LIPID PANEL 1955 DEPRESSION SCREENING 1969 HEPATITIS C SCREENING 12/25/1975 COLOGUARD 2002 FIT TEST 2002 FOBT 2002 SIGMOIDOSCOPY 2002 VIRTUAL COLONOSCOPY 2002 PNEUMOCOCCAL VACCINES (50+ y ears) (1 of 1 - PCV) 12/25/2007 ZOSTER VACCINES (1 of 2) 12/25/2007 COVID-19 VACCINE ( - 2023-2 5 season) 2024 SCREENING FOR DIABETES 02/08/2027 02/09/2024 COLONOSCOPY 12/03/2028 12/03/2018 COLORECTAL CANCER SCREENING 12/03/2028 RSV VACCINE (1 - 1-dose 75+ series) 2032 SMOKING STATUS SCREENING (On ce After 26 Yrs) Completed 06/20/2023 HEPATITIS A VACCINES Aged Out No long er eligible based on patient's age to complete this topic HIB VACCINES Aged Out No longer eligi ble based on patient's age to complete this topic MENINGOCOCCAL VACCINES (ACWY) Aged Out No longer eligible based on patient's age to complete this topic MENINGOCOCCAL VACCINES (B) Aged Out N o longer eligible based on patient's age to complete this topic Medical Devices Implanted Type Area Theatre Instructor Device Identifier Shelf Expiration Date Model / Serial / Lot Bilat Knee Replacements Procedures Procedure Name Priority Date/Time Associated Diagnosis Comments ENDOSCOPY, COLON 12/03/2018 12:3 9 PM EDT from Last 3 Months or Most Recently Relevant to Health Maintenance Results * ENDOSCOPY, COLON (12/03/2018 12:39 PM EDT) Narrative Transcriptions Thomas Egan MD - 12/03/2018 12:39 PM EDT Patient Name: All Lopez Attending MD:: THOMAS EGAN MD Procedure Date: 12/03/2018 12:39 PM Date of : 1955 Age: 62 Admit Type: Outpatient Gender: Male Room: [place] [address] Referring MD: Jo Osborne MD Exam Type: Colonoscopy Indications: Screening for colorectal malignant neoplasm, Last colonoscopy: 2007 Medications: Monitored Anesthesia Care Procedure: Informed consent was obtained from the patient after discussion of the indications, limitations,alternatives, benefits, and risks of the procedure. Risksspecifically discussed include but are not limited to medication reactions, missed lesions, bleeding, perforation, orthe need for emergent surgery. Throughout the procedure, the patient's blood pressure, pulse, end-tidal CO2, and oxygen saturations were monitored continuously. The Olympus adult variable colonoscope [id number] #6 was introduced through the anus and advanced to theterminal ileum. The colonoscopy was performed withoutdifficulty. The patient tolerated the procedure well. The qualityof the bowel preparation was good. Complications: No immediate complications. Estimated blood loss:None. Findings: The perianal and digital rectal examinations werenormal. A few small-mouthed diverticula were found in thesigmoid colon and descending colon. The rectum, recto-sigmoid colon, sigmoid colon,descending colon, splenic flexure, transverse colon, hepaticflexure, ascending colon, cecum, appendiceal orifice, ileocecal valve, ileum, rectum (on retroflexion) and ascendingcolon (on retroflexion) appeared normal. Impression: - Diverticulosis in the sigmoid colon and in the descending colon. - The rectum, recto-sigmoid colon, sigmoid colon, descending colon, splenic flexure, transverse colon, hepatic flexure, ascending colon, cecum, appendiceal orifice, ileocecal valve and terminal ileum arenormal. - No specimens collected. Recommendation: - Discharge patient to home. - High fiber diet. - Continue present medications. - Repeat colonoscopy in 10 years for screeningpurposes. - You have diverticulosis so please eat a high fiberdiet. THOMAS EGAN MD 12/03/2018 12:53:54 PM This report has been signed electronically. Number of Addenda: 0 Note Initiated On: 12/03/2018 12:39 PM Procedure Code(s): --- Professional --- 66720, Colonoscopy, flexible; diagnostic, including collection of specimen(s) by brushing or washing, when performed (separateprocedure) --- Technical --- 34770, Colonoscopy, flexible; diagnostic, including collection of specimen(s) by brushing or washing, when performed (separateprocedure) Diagnosis Code(s): --- Professional --- Z12.11, Encounter for screening for malignant neoplasm of colon K57.30, Diverticulosis of large intestine without perforation orabscess without bleeding --- Technical --- Z12.11, Encounter for screening for malignant neoplasm of colon K57.30, Diverticulosis of large intestine without perforation orabscess without bleeding CPT copyright 2016 [employer]. All rights reserved. The codes documented in this report are preliminary and upon hand ii cutter reviewmay be revised to meet current compliance requirements. [address] [place] [address] Jo Osborne MD GI PROCEDURE ORDERABLES Final Result from Last 3 Months or Most Recently Relevant to Health Maintenance Insurance MEDICARE REPLACEMENT MEDICARE REPLACEMENT MEDICARE REPLACEMENT MEDICARE REPLACEMENT MEDICARE REPLACEMENT MEDICARE REPLACEMENT Care Teams Tripe Washer Relationship Specialty Start Date End Date Jo Osborne MD [address] [place] [address] PCP - General Internal Medicine 01/07/22 Additional Source Comments The information contained in this document represents components of the legal health record. It is not the complete legal health record.[facility]
--- OUTSIDE RECORDS SUMMARY | 2025-03-23 12:21 | XMS_ITS | Encounter Summary ---
Author Organization [facility] Address [address] [place] [address] Phone Care Team Providers Care Tangled Yarn Spool Straightener Name Role Phone Shubham Jacobs MD Unavailable [phone] Omi Parada MD Unavailable [phone] Jesica Dennis PA-C Unavailable [phone] Jo Osborne MD Primary Care Provider [phone] Jo Osborne MD Primary Care Provider [phone] Encounter Details Date Type Department Care Team (Late st Contact Info) Description 06/02/2019 Procedure Pass [address] [place] [address] Social History Tobacco Use Types Packs/Day Years [...] on filedocumented in this encounter Care Teams Tangled Yarn Spool Straightener Relationship Specialty Start Date End Date Jo Osborne MD [address] [facility] [place] [address] PCP - General Internal Medicine 11/06/18 01/06/22 Jo Osborne MD [address] [place] [address] [place] [address] PCP - General Internal Medicine 01/07/22 Shubham Jacobs MD [address] [place] [address] [email or web address] Historical LMR Provider 05/15/17 08/04/21 Omi Parada MD [address] [place] [address], [address] [place] [address] [email or web address] Historical LMR Provider 05/15/17 08/04/21 Jesica Dennis PA-C [address] [place] [address] Orth[facility] Medicine, [place] [address] [email or web address] Historical LMR Provider 05/15/17 08/04/21 documented as of this encounter Additional Source Comments The information contained in this document represents components of the legal health record. It is not the complete legal health record.[facility]
--- OUTSIDE RECORDS SUMMARY | 2025-03-23 12:21 | XMS_ITS | Encounter Summary ---
Author Organization [facility] Address [address] [place] [address] Phone Care Team Providers Care Rn Neonatal Icu Name Role Phone Shubham Jacobs MD Unavailable [phone] Omi Parada MD Unavailable [phone] Jesica Dennis PA-C Unavailable [phone] Jo Osborne MD Primary Care Provider [phone] Jo Osborne MD Primary Care Provider [phone] Reason for Referral * MRI/CAT Scan - Closed Specialty Diagnoses / Procedures Referred By Danie rosen Referred To Contact Radiology Diagnoses Postoperative examination Neoplasm of uncertain behavior of kidney, right H/O partial nephrectomy Procedures MRI Abdomen Shavonne Tse FNP Phone: tel: fax: [email or web address] Referral ID Status Reason Start Date Expiration Date Visits Re quested Visits Authorized [id number] Closed 06/10/2019 09/08/2019 1 1 Encounter Details Date Type Department Care Team (Latest Contact Info) Description 06/02/2019 Transcribe Orders Virtual Department [address] [place] [address] Shavonne Tse FNP [address] [place], [place] [id number] [place] [address] [email or web address] Postoperative examination (Primary Dx); Neoplasm of uncertain behavior of kidney, right; H/O partial nephrectomy Social History Tobacco Use Types Packs/Day Years [...] documented as of this encounter Results * MRI ABDOMEN WITH AND WITHOUT CONTRAST (06/18/2019 10:06 AM EST) Anatomical Region Laterality Modality Abdomen Magnetic Resonan ce 06/18/2019 4:13 PM EST Impressions 06/18/2019 4:39 PM EST Surgical scarring at the site of RIGHT renal lower pole partial nephrectomy. No suspicious renal enhancement. No evidence for tumor recurrence or adenopathy in the abdomen. POS [id number] Narrative 06/18/2019 4:39 PM EST EXAM: MRI ABDOMEN WITH AND WITHOUT CONTRAST HISTORY: Postop follow-up, partial RIGHT nephrectomy 01/2019. History of RIGHT renal carcinoma. COMPARISON: Outside prior MRI imaging and report 12/25/2018 TECHNIQUE: Standard MRI renal protocol without and with IV contrast. Multiplanar multisequence MRI imaging. Post gadolinium multi-phase axial T1 sequences with fat suppression. IV contrast: 20 Dotarem. FINDINGS: Liver: No significant abnormalities in the imaged portion of the liver, which is incompletely included, as the study was centered on the kidneys. No evidence for hepatic steatosis. Spleen: Normal size and signal of spleen. Subcentimeter accessory splenule medial to the spleen. Gallbladder/biliary: Normal gallbladder. No gallstones. No intrahepatic or extrahepatic biliary ductal dilatation. Pancreas: Normal. No mass or pancreatic ductal dilatation. Kidneys: RIGHT kidney: Previously identified enhancing lower pole renal mass has been resected. There is a focal cortical defect at the site of partial nephrectomy, medial posterior lower pole. Minimal linear type postoperative scarring seen adjacent to the remaining lower pole. No suspicious renal enhancement. No hydronephrosis. LEFT kidney: Multiple peripelvic nonenhancing simple cysts. No enhancing renal mass. No hydronephrosis. Adrenal glands: Normal. No nodules. Vasculature: Normal diameter and enhancement of the abdominal aorta. Normal enhancement of the celiac trunk and branches, superior mesenteric artery, inferior mesenteric artery and bilateral single renal arteries. Normal venous enhancement. Bowel: Imaged small and large bowel loops are nondilated. Peritoneum/retroperitoneum: No adenopathy or ascites. Musculoskeletal: Degenerative fatty endplate changes are seen in the lower lumbar spine. Procedure Note Ellie Armas MD - 06/18/2019 EXAM: MRI ABDOMEN WITH AND WITHOUT CONTRAST HISTORY: Postop follow-up, partial RIGHT nephrectomy 01/2019. History ofRIGHT renal carcinoma. COMPARISON: Outside prior MRI imaging and report 12/25/2018 TECHNIQUE: Standard MRI renal protocol without and with IV contrast.Multiplanar multisequence MRI imaging. Post gadolinium multi-phase axialT1 sequences with fat suppression. IV contrast: 20 Dotarem. FINDINGS: Liver: No significant abnormalities in the imaged portion of the liver,which is incompletely included, as the study was centered on the kidneys.No evidence for hepatic steatosis. Spleen: Normal size and signal of spleen. Subcentimeter accessory splenulemedial to the spleen. Gallbladder/biliary: Normal gallbladder. No gallstones. No intrahepatic orextrahepatic biliary ductal dilatation. Pancreas: Normal. No mass or pancreatic ductal dilatation. Kidneys: RIGHT kidney: Previously identified enhancing lower pole renal mass hasbeen resected. There is a focal cortical defect at the site of partialnephrectomy, medial posterior lower pole. Minimal linear typepostoperative scarring seen adjacent to the remaining lower pole. Nosuspicious renal enhancement. No hydronephrosis. LEFT kidney: Multiple peripelvic nonenhancing simple cysts. No enhancingrenal mass. No hydronephrosis. Adrenal glands: Normal. No nodules. Vasculature: Normal diameter and enhancement of the abdominal aorta.Normal enhancement of the celiac trunk and branches, superior mesentericartery, inferior mesenteric artery and bilateral single renal arteries.Normal venous enhancement. Bowel: Imaged small and large bowel loops are nondilated. Peritoneum/retroperitoneum: No adenopathy or ascites. Musculoskeletal: Degenerative fatty endplate changes are seen in the lowerlumbar spine. IMPRESSION: Surgical scarring at the site of RIGHT renal lower pole partialnephrectomy. No suspicious renal enhancement. No evidence for tumor recurrence oradenopathy in the abdomen. POS [id number] Shavonne Tse MOBILE DEVICE ENGINEER IMG MR ABDOMEN Final R esult documented in this encounter Visit Diagnoses Diagnosis Postoperative examination- Primary Follow-up examination, following unspecified surgery Neoplasm of uncertain behavior of kidney, right H/O partial nephrectomy Postoperative examination Follow-up examination, following unspecified surgery Neoplasm of uncertain behavior of kidney, right H/O partial nephrectomy documented in this encounter Care Teams Rn Neonatal Icu Relationship Specialty Start Date End Date Jo Osborne MD [address] [place] [address] PCP - General Internal Medicine 11/06/18 01/06/22 Jo Osborne MD [address] [place] [address] [place] [address] PCP - General Internal Medicine 01/07/22 Shubham Jacobs MD [address] [place] [address] [email or web address] Historical LMR Provider 05/15/17 08/04/21 mOi Parada MD [address] [place] [address] [address] [place] [address] Historical LMR Provider 05/15/17 08/04/21 Jesica Dennis PA-C [address] [place] [address] Orthopedics [facility] Sports Medicine, [place] [address] Historical LMR Provider 05/15/17 08/04/21 documented as of this encounter Additional Source Comments The information contained in this document represents components of the legal health record. It is not the complete legal health record.[facility]
--- OUTSIDE RECORDS SUMMARY | 2025-03-23 12:21 | XMS_ITS | Encounter Summary ---
Author Organization [facility] Address [address] [place] [address] Phone Care Team Providers Care Project Controller Name Role Phone Shubham Jacobs MD Unavailable [phone] Omi Parada MD Unavailable [phone] Jesica Dennis PA-C Unavailable [phone] Jo Osborne MD Primary Care Provider [phone] Jo Osborne MD Primary Care Provider Encounter Details Date Type Department Care Team (Late st Contact Info) Description 12/03/2018 Procedure Pass [facility] Endoscopy Admitting Dept Virtual Department [address] [place] [address] Social History Tobacco Use Types Packs/Day Years [...] on filedocumented in this encounter Care Teams Project Controller Relationship Specialty Start Date End Date Jo Osborne MD [address] [facility] [place] [address] PCP - General Internal Medicine 11/06/18 01/06/22 Jo Osborne MD [address] [place] [address] [place] [address] PCP - General Internal Medicine 01/07/22 Shubham Jacobs MD [address] [place] [address] [email or web address] Historical LMR Provider 05/15/17 08/04/21 Omi Parada MD [address] [place] [address], [address] [place] [address] [email or web address] Historical LMR Provider 05/15/17 08/04/21 Jesica Dennis PA-C [address] [place] [address] Orthopedics [facility] Sports Medicine, [place] [address] [email or web address] Historical LMR Provider 05/15/17 08/04/21 documented as of this encounter Additional Source Comments The information contained in this document represents components of the legal health record. It is not the complete legal health record.[facility]
--- OUTSIDE RECORDS SUMMARY | 2025-03-23 12:21 | XMS_ITS | Encounter Summary ---
Author Organization [facility] Address [address] [place] [address] Phone Care Team Providers Care Expander Name Role Phone Omi Parada MD Primary Care Provider Shubham Jacobs MD Unavailable [phone] Omi Parada MD Unavailable [phone] Jesica Dennis PA-C Unavailable [phone] Jo Osborne MD Primary Care Provider [phone] Jo Osborne MD Primary Care Provider [phone] Encounter Details Date Type Department Care Team (Late st Contact Info) Description 01/26/2018 Ancillary Orders [address] [phone] Shubham Jacobs MD [address] [place] [phone] [email or web address] Pain in both knees, unspecified chronicity Social History Tobacco Use Types Packs/Day Years Used Date Smoking Tobacco: Never Assessed Sex and Gender Information Value Date Recorded Sex Assigned at Not on file Legal Sex Male 9:51 PM EDT Gender Identity Not on file Sexual Orientation Not on file documented as of this encounter Plan of Treatment Not on file documented as of this encounter Visit Diagnoses Diagnosis Pain in both knees, unspecified chronicity documented in this encounter Care Teams Expander Relationship Specialty Start Date End Date Omi Parada MD [address] [place] [address], [address] [place] [address] PCP - General 05/15/17 11/05/18 Jo Osborne MD [address] [place] [address] [place] [address] PCP - General Internal Medicine 11/06/18 01/06/22 Jo Osborne MD [address] [place] [address] [place] [address] PCP - General Internal Medicine 01/07/22 Shubham Jacobs MD [address] [place] [address] [email or web address] Historical LMR Provider 05/15/17 08/04/21 Omi Parada MD [address] [place] [address], [address] [place] [address] Historical LMR Provider 05/15/17 08/04/21 Jesica Dennis PA-C [address] [place] [address] Orthopedics [facility] Sports Medicine, [place] [address] Historical LMR Provider 05/15/17 08/04/21 documented as of this encounter Additional Source Comments The information contained in this document represents components of the legal health record. It is not the complete legal health record.[facility]
--- OUTSIDE RECORDS SUMMARY | 2025-03-23 12:21 | XMS_ITS | Encounter Summary ---
Author Organization [facility] Address [address] [place] [address] Phone Care Team Providers Care Show Jumping Instructor Name Role Phone Jo Osborne MD Primary Care Provider [phone] Jo Osborne MD Primary Care Provider [phone] Encounter Details Date Type Department Care Team (Late st Contact Info) Description 01/03/2022 Procedure Pass [facility], Ct Scan - [address] [address] Social History Tobacco Use Types Packs/Day Years [...] on filedocumented in this encounter Care Teams Show Jumping Instructor Relationship Specialty Start Date End Date Jo Osborne MD [address] [facility] [place] [address] PCP - General Internal Medicine 11/06/18 01/06/22 Jo Osborne MD [address] [facility] [place] [address] PCP - General Internal Medicine 01/07/22 documented as of this encounter Additional Source Comments The information contained in this document represents components of the legal health record. It is not the complete legal health record.[facility]
--- OUTSIDE RECORDS SUMMARY | 2025-03-23 12:21 | XMS_ITS | Encounter Summary ---
Author Organization [facility] Address [address] [place] [address] Phone Care Team Providers Care Mechanical Sound Technician Name Role Phone Jo Osborne MD Primary Care Provider [phone] Jo Osborne MD Primary Care Provider [phone] Reason for Referral * MRI/CAT Scan - Closed Specialty Diagnoses / Procedures Referred By Danie rosen Referred To Contact Radiology Diagnoses Hx of malignant neoplasm of kidney Procedures CT Chest CHG DIAGNOSTIC COMPUTED TOMOGRAPHY THORAX W/O CNTRST CHG DIAGNOSTIC COMPUTED TOMOGRAPHY THORAX W/CONTRAST CHG DIAGNOSTIC COMPUTED TOMOGRAPHY THORAX C-/C+ CHG COMPUTED TOMOGRAPHY THORAX LW DOSE LNG CA SCR C- Michelle Mandel CNP Phone: tel: fax: [email or web address] Referral ID Status Reason Start Date Expiration Date Visits Re quested Visits Authorized [id number] Closed 12/25/2021 03/25/2022 1 1 Encounter Details Date Type Department Care Team (Latest Contact Info) Description 01/03/2022 Transcribe Orders Virtual Department [address] [place] [phone] Michelle Mandel CNP [facility], [address] [place] [address] [phone] [email or web address] Hx of malignant neoplasm of kidney (Primary Dx) Social History Tobacco Use Types Packs/Day Years [...] documented as of this encounter Results * CT CHEST WITH CONTRAST (01/21/2022 10:54 AM EDT) Anatomical Region Laterality Modality Chest Computed Tomogra phy 01/21/2022 11:5 2 AM EDT Impressions 01/21/2022 12:19 PM EDT 1.Triangular shaped nodule adjacent to the fissure on the right which may represent a lymphoid aggregate. Correlation with prior studies, if available recommended. Given history, follow-up CT in six months is recommended to ensure stability. 2.Postsurgical changes status post right nephrectomy. No CT evidence of recurrent or metastatic disease. Narrative 01/21/2022 12:[address] ABDOMEN/PELVIS WITH AND WITHOUT CONTRAST, CT CHEST WITH CONTRAST HISTORY: History of partial nephrectomy for malignancy TECHNIQUE: Multidetector-row CT of the chest, abdomen and pelvis was performed after administration of intravenous contrast using tailored dose modulation techniques. Images were reconstructed in the axial, coronal, and sagittal planes COMPARISON: CT abdomen pelvis 03/27/2020 (accession [id number]), CT abdomen pelvis 03/27/2020 (accession [id number]) FINDINGS: CHEST: Devices/Tubes/Lines: None. Lungs: There is a triangular-shaped nodule adjacent to the fissure at the right lower lobe measuring 5 mm. No additional pulmonary nodules or consolidation. The airways are clear. Pleura: No pleural effusion or pneumothorax. Mediastinum: No thyroid nodules. Coronary artery atherosclerosis. The heart is normal in size. No pericardial effusion. Lymph Nodes: No enlarged supraclavicular, axillary, mediastinal, or hilar lymph nodes. Chest Wall: No chest wall mass. Bones: Multilevel degenerative changes of thoracic spine. Prominent Schmorl's node at T12. No suspicious lytic or blastic lesions. ABDOMEN/PELVIS Liver: Reduced attenuation consistent with fatty liver. Biliary: No biliary ductal dilatation. Spleen: Redemonstration of a small splenule. No splenomegaly or focal lesions. Pancreas: No masses or ductal dilatation. Adrenal Glands: No nodules. Kidneys/Ureters: Post surgical changes of the right lower pole status post partial nephrectomy again with focal hypodensity adjacent to the suture margin. No CT evidence of recurrent or metastatic disease. There is symmetric renal enhancement. Redemonstration left-sided parapelvic cysts. No solid masses, stones, or hydronephrosis. No filling defects are seen in the collecting system, ureters, or the urinary bladder. Bowel: Normal appendix. Diverticulosis without CT evidence of active inflammation. No distention or wall thickening. Peritoneum/Retroperitoneum: Normal. No masses, pneumoperitoneum, or fluid. Lymph Nodes: No lymphadenopathy. Pelvic Organs/Bladder: Prostatic hypertrophy. The urinary bladder is decompressed, limiting evaluation. No discrete lesion demonstrated within the limitations Vessels: Mild atherosclerosis of the abdominal aorta. No abdominal aortic aneurysm. Bones/Soft Tissues: Multilevel degenerative changes of the lumbar spine. No destructive osseous lesions. Procedure Note Frances Laboy MD - 01/21/2022 CT ABDOMEN/PELVIS WITH AND WITHOUT CONTRAST, CT CHEST WITH CONTRAST HISTORY: History of partial nephrectomy for malignancy TECHNIQUE: Multidetector-row CT of the chest, abdomen and pelvis wasperformed after administration of intravenous contrast using tailored dosemodulation techniques. Images were reconstructed in the axial, coronal,and sagittal planes COMPARISON: CT abdomen pelvis 03/27/2020 (accession [id number]), CT abdomenpelvis 03/27/2020 (accession [id number]) FINDINGS: CHEST: Devices/Tubes/Lines: None. Lungs: There is a triangular-shaped nodule adjacent to the fissure at theright lower lobe measuring 5 mm. No additional pulmonary nodules orconsolidation. The airways are clear. Pleura: No pleural effusion or pneumothorax. Mediastinum: No thyroid nodules. Coronary artery atherosclerosis. Theheart is normal in size. No pericardial effusion. Lymph Nodes: No enlarged supraclavicular, axillary, mediastinal, or hilarlymph nodes. Chest Wall: No chest wall mass. Bones: Multilevel degenerative changes of thoracic spine. ProminentSchmorl's node at T12. No suspicious lytic or blastic lesions. ABDOMEN/PELVIS Liver: Reduced attenuation consistent with fatty liver. Biliary: No biliary ductal dilatation. Spleen: Redemonstration of a small splenule. No splenomegaly or focallesions. Pancreas: No masses or ductal dilatation. Adrenal Glands: No nodules. Kidneys/Ureters: Post surgical changes of the right lower pole status postpartial nephrectomy again with focal hypodensity adjacent to the suturemargin. No CT evidence of recurrent or metastatic disease. There issymmetric renal enhancement. Redemonstration left-sided parapelvic cysts.No solid masses, stones, or hydronephrosis. No filling defects are seen inthe collecting system, ureters, or the urinary bladder. Bowel: Normal appendix. Diverticulosis without CT evidence of activeinflammation. No distention or wall thickening. Peritoneum/Retroperitoneum: Normal. No masses, pneumoperitoneum, orfluid. Lymph Nodes: No lymphadenopathy. Pelvic Organs/Bladder: Prostatic hypertrophy. The urinary bladder isdecompressed, limiting evaluation. No discrete lesion demonstrated withinthe limitations Vessels: Mild atherosclerosis of the abdominal aorta. No abdominal aorticaneurysm. Bones/Soft Tissues: Multilevel degenerative changes of the lumbar spine.No destructive osseous lesions. IMPRESSION: 1.Triangular shaped nodule adjacent to the fissure on the right which mayrepresent a lymphoid aggregate. Correlation with prior studies, ifavailable recommended. Given history, follow-up CT in six months isrecommended to ensure stability. 2.Postsurgical changes status post right nephrectomy. No CT evidence ofrecurrent or metastatic disease. Michelle Mandel [facility] IM CT CHEST Final Resu lt documented in this encounter Visit Diagnoses Diagnosis Hx of malignant neoplasm of kidney- Primary Hx of malignant neoplasm of kidney documented in this encounter Care Teams Mechanical Sound Technician Relationship Specialty Start Date End Date Jo Osborne MD [address] [place] [address] PCP - General Internal Medicine 11/06/18 01/06/22 Jo Osborne MD [address] [place] [address] PCP - General Internal Medicine 01/07/22 documented as of this encounter Additional Source Comments The information contained in this document represents components of the legal health record. It is not the complete legal health record.[facility]
--- OUTSIDE RECORDS SUMMARY | 2025-03-23 12:21 | XMS_ITS | Patient Health Record ---
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) Active confirmed Problem [id number] Pain in throat (R07.0) Active confirmed Problem [id number] Other specified symptoms and signs involving the digestive system and abdomen (R19.8) Active confirmed Problem Perez esophagus (K22.70) Active confirmed Vital Signs Temperature 97.3 degrees Fahrenheit 02/02/2025 Blood pressure diastolic 01 mm Hg 02/02/2025 Height 71 in 02/02/2025 Blood pressure systolic 001 mm Hg 02/02/2025 Weight 213.5 lbs 02/02/2025 BMI 29.77 kg/m2 02/02/2025 Encounters Encounter Location Date Provider Diagnosis [facility] [address] [place] [address] [place] [phone] 02/02/2025 Zane Fitzpatrick Jr [facility] [address] [place] [address] [place] [phone] 12/08/2024 Zane Fitzpatrick Jr [facility] [address] [place] [address] [place] [phone] 02/09/2025 Zane Fitzpatrick Jr Perez's esophagus without dysplasia K22.70 Assessments Encounter Date Diagnosis (ICD Code) Assessment Notes Treatment Notes Treatment Clinical Notes Section Notes 02/09/2025 Perez's esophagus without dysplasia (ICD-10 - K22.70) Plan Of Treatment Future Test Test Name Order Date UPPER GI ENDOSCOPY 06/12/2023 Next Appt Details Provider Name:Zane duran Jr, 02/06/2026 09:20:00 AM, [address] [facility], [address], [place], [address], Insurance Providers Payer Name Payer Address Payer Phone Subscriber Number Group Number Insured Name Patient Relationship to Insured Coverage Start Date Coverage End Date [facility] Medicare Advantage Plan [address] [address] [place] [address] [phone] [id number] SHANTE TATE Self - patient is the [...]
--- OUTSIDE RECORDS SUMMARY | 2025-03-23 12:22 | XMS_ITS | Encounter Summary ---
Author Organization [facility] Address [address] [place] [address] Phone Care Team Providers Care Track Grinder Name Role Phone Shubham Jacobs MD Unavailable [phone] Omi Parada MD Unavailable [phone] Jesica Dennis PA-C Unavailable [phone] Jo Osborne MD Primary Care Provider [phone] Jo Osborne MD Primary Care Provider [phone] Encounter Details Date Type Department Care Team (Late st Contact Info) Description 01/15/2021 Ancillary Orders [facility], X-Ray - [address] [address] All Coleman MD [address] [place] [address], [address] [place] [address] [email or web address] Malignant neoplasm of kidney, unspecified laterality Social History Tobacco Use Types Packs/Day Years [...] XR CHEST PA AND LATERAL 2 VIEWS (01/15/2021 9:34 AM EDT) Anatomical Region Laterality Modality Chest Computed Radiogr aphy 01/15/2021 9:37 AM EDT Impressions 01/15/2021 9:40 AM EDT No acute chest disease. No evidence of metastatic disease. Narrative 01/15/2021 9:40 AM EDT HISTORY: As above. COMPARISON: 03/27/2020. CHEST RADIOGRAPH FINDINGS: Views: 2. Lines/Tubes: None. Heart and Mediastinum: Normal. Lungs: Stable lateral left lung base linear scarring. Bones: Stable mild diffuse thoracic spine endplate spurring and mild anterior wedging. Soft Tissues: No acute findings. Procedure Note Geovanni Nunez MD - 01/15/2021 HISTORY: As above. COMPARISON: 03/27/2020. CHEST RADIOGRAPH FINDINGS: Views: 2. Lines/Tubes: None. Heart and Mediastinum: Normal. Lungs: Stable lateral left lung base linear scarring. Bones: Stable mild diffuse thoracic spine endplate spurring and mildanterior wedging. Soft Tissues: No acute findings. IMPRESSION: No acute chest disease. No evidence of metastatic disease. All Coleman MD IMG XR CHEST Final Result documented in this encounter Visit Diagnoses Diagnosis Malignant neoplasm of kidney, unspecified laterality Malignant neoplasm of kidney, unspecified laterality documented in this encounter Care Teams Track Grinder Relationship Specialty Start Date End Date Jo Osborne MD [address] [place] [address] PCP - General Internal Medicine 11/06/18 01/06/22 Jo Osborne MD [address] [place] [address] PCP - General Internal Medicine 01/07/22 Shubham Jacobs MD [address] [place] [address] [email or web address] Historical LMR Provider 05/15/17 08/04/21 Omi Parada MD [address] [place] [address], [address] [place] [address] [email or web address] Historical LMR Provider 05/15/17 08/04/21 Jesica Dennis PA-C [address] [place] [address] Orthopedics & Sports Medicine, [place] [address] [email or web address] Historical LMR Provider 05/15/17 08/04/21 documented as of this encounter Additional Source Comments The information contained in this document represents components of the legal health record. It is not the complete legal health record.[facility]
--- OUTSIDE RECORDS SUMMARY | 2025-03-23 12:22 | XMS_ITS | Encounter Summary ---
Author Organization [facility] Address [address] [place] [address] Phone Care Team Providers Care Scrap Crusher Name Role Phone Shubham Jacobs MD Unavailable [phone] Omi Parada MD Unavailable [phone] Jesica Dennis PA-C Unavailable [phone] Jo Osborne MD Primary Care Provider [phone] Jo Osborne MD Primary Care Provider [phone] Encounter Details Date Type Department Care Team (Late st Contact Info) Description 06/18/2019 Ancillary Orders [facility],Outside Imaging [address] [place] [address] System, Provider Not In, [place] [address] Social History Tobacco Use Types Packs/Day Years [...] as of this encounter Results * MRI Abdomen Outside (No Interpretation) (12/25/2018 12:00 AM EDT) Narrative SYSTEMGENERATED, DOCUMENTATION - 06/18/2019 8:29 AM EST This study is for PACS storage only and not for interpretation. us Provider Not In System PhD IMG OUTSIDE IMAGING W /OUT INTERPRETATION Final Result documented in this encounter Visit Diagnoses Not on filedocumented in this encounter Care Teams Scrap Crusher Relationship Specialty Start Date End Date Jo Osborne MD [address] [facility] [place] [address] PCP - General Internal Medicine 11/06/18 01/06/22 Jo Osborne MD [address] [facility] [place] [address] PCP - General Internal Medicine 01/07/22 Shubham Jacobs MD [address] [place] [address] [email or web address] Historical LMR Provider 05/15/17 08/04/21 Omi Parada MD [address] [place] [address], [address] [place] [address] Historical LMR Provider 05/15/17 08/04/21 Jesica Dennis PA-C [address] [place] [address] Orthopedics & Sports Medicine, [place] [address] Historical LMR Provider 05/15/17 08/04/21 documented as of this encounter Additional Source Comments The information contained in this document represents components of the legal health record. It is not the complete legal health record.[facility]
--- OUTSIDE RECORDS SUMMARY | 2025-03-23 12:22 | XMS_ITS | Encounter Summary ---
Author Organization [facility] Address [address] [place] [address] Phone Care Team Providers Care International Coordinator Name Role Phone Jo Osborne MD Primary Care Provider [phone] Reason for Referral * MRI/CAT Scan - Closed Specialty Diagnoses / Procedures Referred By Contac t Referred To Contact Radiology Diagnoses Hx of malignant neoplasm of kidney Procedures CT Abdomen/Pelvis Michelle Mandel CNP Phone: tel: fax: [email or web address] Referral ID Status Reason Start Date Expiration Date Visits Re quested Visits Authorized [id number] Closed 01/21/2022 03/25/2022 1 1 Encounter Details Date Type Department Care Team (Late st Contact Info) Description 01/21/2022 Ancillary Orders Virtual Department [address] [place] [address] Michelle Mandel CNP Count includes the [facility]0 [facility], [address] [place] [address] [email or web address] Hx of malignant neoplasm of kidney Social History Tobacco Use Types Packs/Day [...] as of this encounter Results * CT ABDOMEN/PELVIS WITH AND WITHOUT CONTRAST (01/21/2022 10:54 AM EDT) Anatomical Region Laterality Modality Abdomen, Pelvis Computed Tomogra phy 01/21/2022 11:5 2 AM [...] planes COMPARISON: CT abdomen pelvis 03/27/2020 (accession [id number]), CT abdomen pelvis 03/27/2020 (accession [id number]) FINDINGS: CHEST: Devices/Tubes/Lines: None. Lungs: There is [...] planes COMPARISON: CT abdomen pelvis 03/27/2020 (accession [id number]), CT abdomenpelvis 03/27/2020 (accession [id number]) FINDINGS: CHEST: Devices/Tubes/Lines: None. Lungs: There is [...] evidence ofrecurrent or metastatic disease. Michelle Mandel [facility] CT ABD/PELVIS Final Re sult documented in this encounter Visit Diagnoses Diagnosis Hx of malignant neoplasm of kidney Hx of malignant neoplasm of kidney documented in this encounter Care Teams International Coordinator Relationship Specialty Start Date End Date Jo Osborne MD [facility] [place] [address] PCP - General Internal Medicine 01/07/22 documented as of this encounter Additional Source Comments The information contained in this document represents components of the legal health record. It is not the complete legal health record.[facility]
--- OUTSIDE RECORDS SUMMARY | 2025-03-23 12:22 | XMS_ITS | Encounter Summary ---
Author Organization [facility] Address [address] [place] [address] [place] [address] Phone Care Team Providers Care Cranberry Bog Supervisor Name Role Phone Jo Osborne MD Primary Care Provider Encounter Details Date Type Department Care Team (Late st Contact Info) Description 01/21/2022 Procedure Pass [facility], Ct Scan - [address] [address] Social History Tobacco Use Types Packs/Day Years [...] on filedocumented in this encounter Care Teams Cranberry Bog Supervisor Relationship Specialty Start Date End Date Jo Osborne MD [address] [place] [address] PCP - General Internal Medicine 01/07/22 documented as of this encounter Additional Source Comments The information contained in this document represents components of the legal health record. It is not the complete legal health record.[facility]
--- OUTSIDE RECORDS SUMMARY | 2025-03-23 12:22 | XMS_ITS | Encounter Summary ---
Author Organization [facility] Address [address] [place] [address] Phone Care Team Providers Care Artist'S Representative Name Role Phone Shubham Jacobs MD Unavailable Omi Parada MD Unavailable [phone] Jesica Dennis PA-C Unavailable [phone] Jo Osborne MD Primary Care Provider [phone] Jo Osborne MD Primary Care Provider [phone] Encounter Details Date Type Department Care Team (Latest Contact Info) Description 09/21/2020 Transcribe Orders Virtual Department [address] [place] [address] All Coleman MD [address] [place] [address], [address] [address] [email or web address] Hx of malignant neoplasm of kidney (Primary [...] documented as of this encounter Results * US Kidneys (10/02/2020 10:33 AM EST) Anatomical Region Laterality Modality Abdomen, Kidney Ultrasound 10/02/2020 12:5 1 PM EST Impressions 10/02/2020 12:57 PM EST 1. Status post partial nephrectomy on the right. 2. Mild nonacute left-sided hydronephrosis. Dr. Coleman was contacted for report. Narrative 10/02/2020 12:57 PM EST US KIDNEYS TECHNIQUE: Ultrasound evaluation of the KIDNEYS AND BLADDER. Volumetric sweeps were obtained and reviewed. COMPARISON: Correlation is made to a CT dated 03/27/2020. FINDINGS: RIGHT KIDNEY: The right kidney measures 10.6 cm largest dimension. Parenchyma is within normal limits. No hydronephrosis. There are findings consistent with reported history of partial nephrectomy LEFT KIDNEY: The left kidney measures 12.7 cm in largest dimension. Parenchyma is within normal limits. There is evidence of mild hydronephrosis which, however, is also identified on previous CT imaging. BLADDER: Unremarkable. Procedure Note Sanjeev Thomas MD - 10/02/2020 US KIDNEYS TECHNIQUE: Ultrasound evaluation of the KIDNEYS AND BLADDER. Volumetric sweeps wereobtained and reviewed. COMPARISON: Correlation is made to a CT dated 03/27/2020. FINDINGS: RIGHT KIDNEY: The right kidney measures 10.6 cm largest dimension.Parenchyma is within normal limits. No hydronephrosis. There are findingsconsistent with reported history of partial nephrectomy LEFT KIDNEY: The left kidney measures 12.7 cm in largest dimension.Parenchyma is within normal limits. There is evidence of mildhydronephrosis which, however, is also identified on previous CTimaging. BLADDER: Unremarkable. IMPRESSION: 1. Status post partial nephrectomy on the right. 2. Mild nonacute left-sided hydronephrosis. Dr. Coleman was contacted for report. All Coleman MD [facility] Final Result documented in this encounter Visit Diagnoses Diagnosis Hx of malignant neoplasm of kidney- Primary Hx of malignant neoplasm of kidney documented in this encounter Care Teams Artist'S Representative Relationship Specialty Start Date End Date Jo Osborne MD [address] [facility] [place] [address] PCP - General Internal Medicine 11/06/18 01/06/22 Jo Osborne MD [address] [facility] [address] [place] PCP - General Internal Medicine 01/07/22 Shubham Jacobs MD [address] [place] [address] [email or web address] Historical LMR Provider 05/15/17 08/04/21 Omi Parada MD [address] [place] [address], [address] [place] [address] [email or web address] Historical LMR Provider 05/15/17 08/04/21 Jesica Dennis PA-C [address] [place] [address] Orthopedics & Sports Medicine, [place] [address] [email or web address] Historical LMR Provider 05/15/17 08/04/21 documented as of this encounter Additional Source Comments The information contained in this document represents components of the legal health record. It is not the complete legal health record.[facility]
--- OUTSIDE RECORDS SUMMARY | 2025-03-23 12:22 | XMS_ITS | Encounter Summary ---
Author Organization [facility] Address [address] [place] [address] Phone Care Team Providers Care Chief Unit Forester Name Role Phone Jo Osborne MD Primary Care Provider [phone] Encounter Details Date Type Department Care Team (Late st Contact Info) Description 01/21/2022 Ancillary Orders Virtual Department [address] [place] [phone] Michelle Mandel [address], [address] [place] [address] [email or web address] Hx of malignant neoplasm of kidney Social [...] as of this encounter Visit Diagnoses Diagnosis Hx of malignant neoplasm of kidney documented in this encounter Care Teams Chief Unit Forester Relationship Specialty Start Date End Date Jo Osborne MD 1959 [facility] [place] [address] PCP - General Internal Medicine 01/07/22 documented as of this encounter Additional Source Comments The information contained in this document represents components of the legal health record. It is not the complete legal health record.[facility]
--- OUTSIDE RECORDS SUMMARY | 2025-03-23 12:22 | XMS_ITS | Encounter Summary ---
Author Organization [facility] Address [address] [place] [address] Phone Care Team Providers Care Sterile Products Processor Name Role Phone Shubham Jacobs MD Unavailable Omi Parada MD Unavailable [phone] Jesica Dennis PA-C Unavailable [phone] Jo Osborne MD Primary Care Provider [phone] Jo Osborne MD Primary Care Provider [phone] Encounter Details Date Type Department Care Team (Latest Contact Info) Description 11/23/2018 Transcribe Orders [facility] [address] [place] [address] Thomas Moctezuma MD [address] [place] [address] [id number] Abnormal findings on imaging of biliary tract (Primary Dx); Change in bowel habits Social History Tobacco Use Types Packs/Day Years Used Date Smoking Tobacco: Never Assessed Sex and Gender Information Value Date Recorded Sex Assigned at Not on file Legal Sex Male 9:51 PM EDT Gender Identity Not on file Sexual Orientation Not on file documented as of this encounter Plan of Treatment Not on file documented as of this encounter Results * Immunoglobulin A (11/23/2018 1:23 PM EDT) IgA 327 70 - 400 mg/dL [facility] Blood 11/23/2018 1:23 PM EDT 11/23/2018 3:49 PM EDT us Thomas Moctezuma MD LAB BLOOD ORDERABLES Final R esult Performing Organization Address [facility]/ZIP Co de Phone Number [address] [address] * Lipase (11/23/2018 1:23 PM EDT) LIPASE 21 16 - 63 U/L [facility] Blood 11/23/2018 1:23 PM EDT 11/23/2018 3:49 PM EDT us Thomas Moctezuma MD LAB BLOOD ORDERABLES Final R esult Performing Organization Address [facility] Co de Phone Number [address] [address] * C-Reactive Protein (11/23/2018 1:23 PM EDT) C REACTIVE PROTEIN 2.3 0.0 - 4.0 mg/L [facility] Blood 11/23/2018 1:23 PM EDT 11/23/2018 3:49 PM EDT us Thomas Moctezuma MD LAB BLOOD ORDERABLES Final R esult Performing Organization Address [facility] Co de Phone Number [address] [address] * (ABNORMAL) Comprehensive metabolic panel (11/23/2018 1:23 PM EDT) SODIUM 143 133 - 146 mmol/L [facility] POTASSIUM 3.6 3.3 - 5.1 mmol/L [facility] CHLORIDE 104 96 - 108 mmol/L [facility] CO2 24 21 - 35 mmol/L [facility] BUN 21(H) 6 - 19 mg/dL [facility] CREATININE 1.00 0.5 - 1.5 mg/dL [facility] GLUCOSE 108(H) 70 - 99 mg/dL [facility] ALBUMIN 4.6 3.9 - 4.8 g/dL [facility] TOTAL PROTEIN 7.3 6.5 - 8.0 g/dL [facility] CALCIUM 9.4 8.4 - 10.3 mg/dL [facility] ALKALINE PHOSPHATASE 63 39 - 117 U/L [facility] TOTAL BILIRUBIN 1.0 0.0 - 1.2 mg/dL [facility] AST 22 0 - 37 U/L [facility] ALT 28 0 - 40 U/L [facility] GLOBULIN 2.7 1 - 4.8 g/dL [facility] EGFR 81 >59 mL/min/1.7 3m2 [facility] Comment:If patient is black, multiply result by 1.159. Estimated glomerular filtration rate calculated using the CKD-EPI equation. ANION GAP 19 10 - 20 mmol/L [facility] Blood 11/23/2018 1:23 PM EDT 11/23/2018 3:49 PM EDT us Thomas Moctezuma MD LAB BLOOD ORDERABLES Final R esult [facility] [address] [place] [address] * Celiac Screening Test Panel (11/23/2018 1:23 PM EDT) IgA 334 61 - 356 mg/dL [facility] Celiac Disease Panel/Interpret ation SEE NOTE [facility] Comment: (NOTE) Negative serology. Celiac disease unlikely. However, approximately 10% of patients with celiac disease are seronegative. Also, patients who are already adhering to a gluten-free diet may be seronegative. If celiac disease is highly clinically suspected, consider HLA-DQ typing. Blood 11/23/2018 1:23 PM EDT 11/23/2018 3:49 PM EDT us Thomas Moctezuma MD LAB BLOOD ORDERABLES Final R esult [facility] [address] [place] [address] * CBC (11/23/2018 1:23 PM EDT) WBC 8.58 3.40 - 11.20 K/uL [facility] RBC 4.83 4.50 - 5.50 M/uL [facility] HGB 15.3 13.0 - 17.0 g/dL [facility] HCT 43.7 40.0 - 51.0 % [facility] PLT 235 130 - 400 K/uL [facility] MCV 90.5 79.0 - 98.0 fL [facility] MCH 31.7 27.0 - 34.8 pg [facility] MCHC 35.0 31.5 - 36.0 g/dL [facility] RDW 11.7 10.8 - 14.6 % [facility] MPV 9.5 9.4 - 12.4 [facility] NRBC 0.00 0.00 /100 WBCs [facility] ABSOLUTE NRBC 0.00 0.00 K/uL [facility] Blood 11/23/2018 1:23 PM EDT 11/23/2018 3:49 PM EDT us Thomas Moctezuma MD LAB BLOOD ORDERABLES Final R esult Performing Organization Address City/State/[facility] Co de Phone Number [facility] [address] [place] [address] documented in this encounter Visit Diagnoses Diagnosis Abnormal findings on imaging of biliary tract- Primary Nonspecific (abnormal) findings on radiological and other examination of biliary tract Change in bowel habits Other symptoms involving digestive system documented in this encounter Care Teams Sterile Products Processor Relationship Specialty Start Date End Date Jo Osborne MD 1959 [facility] [place] [address] PCP - General Internal Medicine 11/06/18 01/06/22 Jo Osborne MD [address] [facility] [place] [address] PCP - General Internal Medicine 01/07/22 Shubham Jacobs MD [address] [place] [address] [email or web address] Historical LMR Provider 05/15/17 08/04/21 Omi Parada MD [address] [facility], [address] [place] [address] [email or web address] Historical LMR Provider 05/15/17 08/04/21 Jesica Dennis PA-C [address] [place] [address] [facility], [place] [address] [email or web address] Historical LMR Provider 05/15/17 08/04/21 documented as of this encounter Additional Source Comments The information contained in this document represents components of the legal health record. It is not the complete legal health record.[facility]
--- OUTSIDE RECORDS SUMMARY | 2025-03-23 12:22 | XMS_ITS | Encounter Summary ---
Author Organization [facility] Address [address] [place] [address] Phone Care Team Providers Care Regulatory Scientist Name Role Phone Omi Parada MD Primary Care Provider Shubham Jacobs MD Unavailable Omi Parada MD Unavailable [phone] Jesica Dennis PA-C Unavailable [phone] Jo Osborne MD Primary Care Provider [phone] Jo Osborne MD Primary Care Provider [phone] Encounter Details Date Type Department Care Team (Late st Contact Info) Description 01/26/2018 Ancillary Orders [facility] [address] [place] [address] Shubham Jacobs MD [address] [place] [address] [email or web address] Social History Tobacco Use Types Packs/Day Years [...] on filedocumented in this encounter Care Teams Regulatory Scientist Relationship Specialty Start Date End Date Omi Parada MD [address] [place] [address], [address] [place] [address] PCP - General 05/15/17 11/05/18 Jo Osborne MD [address] [place] [address] [place] [address] PCP - General Internal Medicine 11/06/18 01/06/22 Jo Osborne MD [address] [place] [address] [place] [address] PCP - General Internal Medicine 01/07/22 Shubham Jacobs MD [address] [place] [address] [email or web address] Historical LMR Provider 05/15/17 08/04/21 Omi Parada MD [address] [place] [address], [address] [place] [address] Historical LMR Provider 05/15/17 08/04/21 Jesica Dennis PA-C [address] [place] [address] [facility], [place] [address] Historical LMR Provider 05/15/17 08/04/21 documented as of this encounter Additional Source Comments The information contained in this document represents components of the legal health record. It is not the complete legal health record.[facility]
--- OUTSIDE RECORDS SUMMARY | 2025-03-23 12:22 | XMS_ITS | Encounter Summary ---
Author Organization [facility] Address [address] [place] [address] Phone Care Team Providers Care Engagement Specialist Name Role Phone Shubham Jacobs MD Unavailable [phone] Omi Parada MD Unavailable [phone] Jesica Dennis PA-C Unavailable [phone] Jo Osborne MD Primary Care Provider [phone] Jo Osborne MD Primary Care Provider [phone] Encounter Details Date Type Department Care Team (Late st Contact Info) Description 02/29/2020 Procedure Pass [facility], Ct Scan - [address] [address] Social History Tobacco Use Types Packs/Day Years [...] on filedocumented in this encounter Care Teams Engagement Specialist Relationship Specialty Start Date End Date Jo Osborne MD 1959 [facility] [address] PCP - General Internal Medicine 11/06/18 01/06/22 Jo Osborne MD [facility] [address] PCP - General Internal Medicine 01/07/22 Shubham Jacobs MD [address] [place] [address] [email or web address] Historical LMR Provider 05/15/17 08/04/21 Omi Parada MD [address] [place] [address], [address] [place] [address] [email or web address] Historical LMR Provider 05/15/17 08/04/21 Jesica Dennis PA-C [address] [place] [address] Orth[facility] Sports Medicine, [place] [address] [email or web address] Historical LMR Provider 05/15/17 08/04/21 documented as of this encounter Additional Source Comments The information contained in this document represents components of the legal health record. It is not the complete legal health record.[facility]
== END 2025-03-23 11:27 | disposition home or self-care (01) ==
LOC: HO.HMGCX 11:26
PROVIDERS: PCP Internal Medicine; Visit Provider Internal Medicine
DX: N20.0 Calculus of kidney (principal)
CPT/HCPCS: 76775

== ENCOUNTER → 2025-03-23 11:27 | Outpatient (BNV) | payer MEDICARE, SELFPAY | PROVIDERS: PCP Internal Medicine; Visit Provider Radiology Diagnostic Radiology | DX: N20.0 Calculus of kidney (principal) | CPT/HCPCS: 76775 ==